=== PATIENT | female | born 1955 | race Caucasian/White ===

== ENCOUNTER 2016-08-02 08:50 | Emergency (ER) | payer OTHER ==
[2016-08-02 09:44] VITALS: BP 146/78
--- NOTE | 2016-08-02 09:55 | PROVIDER DOCUMENTATION ---
HPI-Musculoskeletal Pain/Inj - GENERAL Chief Complaint: Fall Stated Complaint: FALL/EXTREMITY INJURY Time Seen by Provider: 08/02/16 09:42 - HX OF PRESENT ILLNESS-MUSKULOSKELTAL Nature of Presenting Problem: Pt reports she fell 2 nights ago onto her knees and caught herself with her hands. Presents with increased pain in right shoulder from chronic pain but no other pain from fall. States she needs pain meds and something for nausea. Unable to see PCP due to not having met deductible. Has been referred to pain clinic but has not had appt yet. Quality of Pain: reports: aching Severity in ED: moderate Onset/Duration: abrupt, 2 days ago Timing: getting worse Modifying Factors: improves with: nothing Any recent injury?: Yes Locality of Occurance: Home Similar Symptoms Previously?: Yes Recently seen or treated by another doctor?: Yes Review of Systems - Adult - REVIEW OF SYSTEMS - ADULT Constitutional: denies: chills, fever Eyes: reports: no symptoms reported Ears, Nose, Mouth & Throat: reports: no symptoms reported Cardiovascular: reports: no symptoms reported Respiratory: reports: no symptoms reported Gastrointestinal: reports: nausea Musculoskeletal: reports: see HPI Neurological: denies: dizziness/vertigo, headache/migraines, numbness, paresthesia All Other Systems: Reviewed and Negative Past History - Adult - PAST MEDICAL HISTORY-ADULT Review of Records: reports: Old Records Reviewed, Nursing Assessment Review, Medications Reviewed Major Childhood Illnesses: reports: denies history Cardiovascular: reports: hyperlipidemia Respiratory: reports: other (Emphsyma) Gastrointestinal: reports: denies history Obstetrical/Gynecological: reports: denies history Genitourinary: reports: kidney stones Musculoskeletal: reports: chronic pain, fibromyalgia, intervertebral disc disease Neurological: reports: denies history Psychiatric: reports: bipolar Endocrine/Immune: reports: thyroid disorder Other Conditions: reports: denies history - PRIOR SURGERIES/PROCEDURES Surgical/Procedure History: reports: appendectomy, cholecystectomy, hysterectomy - IMMUNIZATION STATUS Childhood Immunizations: See Nurse Assessment Flu Vaccine: See Nurse Assessment - FAMILY HISTORY Family History: reviewed, not pertinent - SOCIAL HISTORY Smoking: greater than 1 pack/day Provider spent 3-5 mins advising pt. on dangers of tobacco.: Discussed manners to quit use, and f/u contacts for add'l counseling. Living Situation: alone Physical Exam-Injury Related - Physical Exam-Injury Related Initial Vital Signs Reviewed: Yes General Appearance: appears well, alert, mild distress Eyes: PERRL/EOMI, pink conjunctivae Head, Ears, Nose, Mouth & Throat: normocephalic/atraumatic, moist mucous membranes Neck: non-tender, full range of motion, supple. negative: C-spine tenderness, decresed ROM, pain on movement, tender midline, vertebral point tenderness Respiratory: chest non-tender, lungs clear, normal breath sounds Cardiovascular: regular rate, rhythm, no edema Abdominal Exam: normal bowel sounds, non tender, soft Extremity: normal gait, tenderness (right shoulder without localization, unwilling to attempt ROM with right shoulder.), other (knees are WNL from fall 2 days ago) Integumentary: normal color, warm/dry Neurologic: grossly normal, no motor/sensory deficits Psych/Mental Status: normal thought content, normal thought process - Glascow Coma Score Best Eye Response ([place]): (4) open spontaneously Best Verbal Response ([place]): (5) oriented Best Motor Response ([place]): (6) obeys commands [place] Total: 15 Progress - PLAN OF CARE/RESULTS Progress/Plan/Lab Results: Has been referred to pain clinic for chronic right shoulder pain, fell a few days ago and now has increased pain. Presents to ER for pain medication and something for nausea. Pt states she is not a surgical candidate for shoulder replacement because she is too young so she will be going to pain clinic soon to treat her chronic right shoulder pain. Again, denies pain in knees, hips, neck, back, left shoulder from recent fall, only has exacerbated pain in right shoulder. Vital Signs Pulse Resp BP Pulse Ox 08/02/16 09:42 100 H 24 146/78 99 sulfamethoxazole [From Bactrim] Allergy (Verified 06/23/15 22:53) RASH trimethoprim [From Bactrim] Allergy (Verified 06/23/15 22:53) RASH Buspirone [Buspar] 10 mg PO TID 10/07/13 Ezetimibe/Simvastatin [Vytorin 10-80 mg Tablet] 1 tab PO QHS 05/08/14 Levothyroxine [Synthroid] 75 microgm PO QAM 05/31/14 Gabapentin [Neurontin] 600 mg PO TID #0 tablet 06/03/14 Omeprazole 40 mg PO DAILY 05/17/15 Hydroxyzine Pamoate [Vistaril] 75 mg PO 4XDAY PRN 08/02/16 Orders Category Date Time Status Ketorolac [Toradol] Med 08/02/16 10:09 Discontinued 10 mg PO NOW ONE Methocarbamol [Robaxin] Med 08/02/16 10:09 Discontinued 500 mg PO NOW ONE Departure - Departure Time of Disposition Order: 10:13 DIAGNOSIS: Shoulder pain, right Qualifiers: Chronicity: acute Qualified Code(s): M25.511 - Pain in right shoulder Disposition: HOME 01 Certified Medical Emergency: Emergent Condition: Good Additional Instructions: Apply heat or ice to area of pain several times per day. Follow up with your doctor as needed for further management of shoulder pain ED Follow Up Instructions: You have been treated by a care provider in the Emergency Department. These instructions are being provided to you so you can have an understanding of how to care for yourself upon discharge. Upon discharge from the Emergency Department, you are responsible for making arrangements for follow-up care by a physician of your choice. Take all prescribed medications as directed. Return to the Emergency Department immediately for any new or worsening symptoms. You may call the Physician Referral phone number at [phone] to obtain a list of Physicians who are taking new patients. Prescriptions: Ibuprofen 800 mg PO BID #20 tablet Methocarbamol 500 mg PO BID #20 tablet Attestation - Physician/ SÁNCHEZ Attestation Patient care was provided by Advanced Practice Provider:: Yes Advanced Practice Provider:: Roopa Hortno Advanced Practice Provider documentation review:: The Mid-level provider documentation, treatment plan and medical decision making was reviewed by the physician who agrees with all treatment and medical decision making by the MLP.
[2016-08-02] MEDS ORDERED: TORADOL PO ONE (10:09)
[2016-08-02] MEDS ORDERED: ROBAXIN PO ONE (10:09)
[2016-08-02] MEDS ORDERED: PHENERGAN PO ONE (10:15)
== END 2016-08-02 10:41 | disposition home or self-care (01) ==
LOC: P.ED 08:50
DX: M25.511 Pain in right shoulder (principal); R11.0 Nausea; E78.5 Hyperlipidemia, unspecified; M79.7 Fibromyalgia; G89.29 Other chronic pain; E07.9 Disorder of thyroid, unspecified; F31.9 Bipolar disorder, unspecified; F17.210 Nicotine dependence, cigarettes, uncomplicated; Z71.6 Tobacco abuse counseling; W19.XXXA Unspecified fall, initial encounter; Z79.899 Other long term (current) drug therapy
CPT/HCPCS: 99282

== ENCOUNTER 2016-12-01 19:40 | Inpatient (IN) ==
[2016-12-01] MEDS ORDERED: ASPIRIN PO ONE (19:53)
[2016-12-01 19:58] LABS: MANUAL DIFF NEEDED? NO
[2016-12-01 20:11] LABS: BASO% 0.3 % (0.0-0.8); EOS# 0.21 X1000 (0.0-0.7); EOS% 3.7 % (0.0-10.0); HEMATOCRIT 38.9 % (37.0-47.0); HEMOGLOBIN 13.3 g/dL (12.0-16.0); LYMPH# 2.17 X1000 (1.2-3.4); LYMPH% 37.9 % (20.5-51.1); MCH 29.7 PG (27-31); MCHC 34.2 g/dL (33-37); MCV 86.8 FL (81-99); MONO# 0.38 X1000 (0.11-0.59); MONO% 6.6 % (1.7-9.3); MPV 10.1 FL (7.4-10.4); NEUT% 51.5 % (42.2-75.2); PLT 255 X1000 (130-400); RBC 4.48 XMIL (4.2-5.4)
[2016-12-01 20:19] LABS: INR 1.04; PROTIME 10.9 Seconds (9.2-11.7); PTT 27.9 Seconds (22.0-36.0)
[2016-12-01 20:22] LABS: AGAP 11; ALBUMIN 2.7 g/dL (3.5-5.0); ALKALINE PHOSPHATASE 140 U/L (32-104); BUN 17 mg/dL (8-22); CALCIUM 8.8 mg/dL (8.8-10.2); CHLORIDE 102 mmol/L (98-107); CK PROFILE 184 U/L (24-173); COSMO 281; GOT 25 U/L (10-30); GPT 19 U/L (10-36); LIPASE 8 U/L (13-60); MAGNESIUM 1.7 mg/dL (1.5-2.7); POTASSIUM 3.3 mmol/L (3.5-5.1); SODIUM 140 mmol/L (136-145); TCO2 27 mmol/L (25-35); TOTAL BILIRUBIN 0.39 mg/dL (0.20-1.00)
[2016-12-01] MEDS ORDERED: KLOR-CON PO ONE (20:30)
[2016-12-01 20:43] LABS: CK INDEX 4.9 (0.0-2.5); CK-MB 8.96 ng/mL (0.0-5.0)
--- NOTE | 2016-12-01 21:43 | Diag Imaging Result Doc PS360 ---
EXAM: CHEST-2 VIEWS HISTORY: CP TECHNIQUE: COMPARISON: 06/25/2015 FINDINGS: The lungs are well expanded. The heart is not enlarged. The vessels are not distended. There are no infiltrates. No pleural effusions. There has been prior surgery to the lower neck. No free air beneath the diaphragm. IMPRESSION: No acute abnormality. Electronically signed by Priyank Mcpherson 12/01/2016 9:41 PM
--- NOTE | 2016-12-01 21:47 | Diag Imaging Result Doc PS360 ---
EXAM: ANGIOGRAM/PULMONARY ARTERIES INDICATION: SOB,CP, elevated D-dimer TECHNIQUE: Dose reduction protocol was used. COMPARISON: 05/09/2011 FINDINGS: There is a small filling defect seen in a branch of the right common artery artery leading to the anterior segment of the right upper lobe consistent with a small pulmonary embolus. No other emboli are appreciated. The clot burden is low. There is patchy aortic atherosclerotic calcification. There is no evidence of aortic aneurysm or dissection. The heart is moderately enlarged. There are calcified mediastinal and hilar lymph nodes indicating prior granulomatous disease. There is a calcified granuloma at the medial right lung base. There are several pleural-based nodules bilaterally. All of these are stable since 2010 making them consistent with noncalcified granulomata. The lungs are clear, otherwise. There is no evidence of pulmonary infarct. There are no pleural fluid collections and no pneumothorax. Review of the upper abdomen reveals hepatic steatosis. There are multiple calcified granulomata in the liver and the spleen. IMPRESSION: 1.Solitary small pulmonary embolus in a branch of the right pulmonary artery (see image 55, series 4). Clot burden is low. 2.Other incidental/nonacute findings detailed above. Electronically signed by John Love 12/01/2016 9:45 PM
[2016-12-01] MEDS ORDERED: LOVENOX 1 MG/KG SUBQ ONE (21:56)
--- NOTE | 2016-12-01 22:00 | PROVIDER DOCUMENTATION ---
This chart was entered by Aleyda Rai Scribe, acting as scribe for Norman Mathis PA. HPI-Chest Pain - General Stated Complaint: CHEST PAIN Time Seen by Provider: 12/01/16 19:42 Source: patient, EMS Allergies/Adverse Reactions: Patient Allergies Allergy/AdvReac Type Severity Reaction Status Date / Time No Known Allergies Allergy Verified 12/01/16 20:04 Home Medications: Home Medication List Medication Instructions Recorded Confirmed Last Taken Type Levothyroxine [Synthroid] 88 microgm PO QAM 05/31/14 12/01/16 12/01/16 History Gabapentin [Neurontin] 600 mg PO TID #0 tablet 06/03/14 12/01/16 12/01/16 Rx Omeprazole 40 mg PO DAILY 05/17/15 12/01/16 12/01/16 History Buprenorphine HCl/Naloxone HCl 2.25 each SL DAILY 12/01/16 12/01/16 12/01/16 History [Suboxone 8 mg/2 mg Sl Film] Celecoxib 200 mg PO DAILY 12/01/16 12/01/16 12/01/16 History Dicyclomine [Bentyl] 20 mg PO BID 12/01/16 12/01/16 12/01/16 History Ezetimibe [Zetia] 10 mg PO DAILY 12/01/16 12/01/16 12/01/16 History Furosemide [Lasix] 20 mg PO DAILY 12/01/16 12/01/16 12/01/16 History Hydroxyzine HCl 10 mg PO 4XDAY 12/01/16 12/01/16 12/01/16 History Potassium Chloride 10 meq PO DAILY 12/01/16 12/01/16 12/01/16 History Pravastatin Sodium 40 mg PO DAILY 12/01/16 12/01/16 12/01/16 History Vilazodone HCl [Viibryd] 20 mg PO TID 12/01/16 12/01/16 12/01/16 History - History of Present Illness-CP Nature of Presenting Problem: 61 Y/O F presents to ED with Chest Pain. Pt states that she had a dull chest pain with radiation to her shoulder that began this afternoon while she was at home. Pt states pain with inspiration and that she has a hx of fibromyalgia. Location: reports: central Chest Pain Radiation: reports: shoulders Quality of Pain: reports: dull Severity in ED: moderate Onset/Duration: this afternoon Timing: still present, improving, changing over time Context/Activities at Onset: reports: none Associated Symptoms: denies: nausea, shortness of breath Nitro Today/Relief: no nitro taken today Aspirin Treatment Today: no aspirin today Recently Seen Here or By Another Healthcare Provider: No Review of Systems - Adult - REVIEW OF SYSTEMS - ADULT Constitutional: denies: chills, fever Eyes: reports: no symptoms reported Ears, Nose, Mouth & Throat: reports: no symptoms reported Cardiovascular: reports: chest pain. denies: orthopnea, palpitations Respiratory: denies: cough, shortness of breath Gastrointestinal: denies: abdominal pain, diarrhea, nausea, poor appetite, vomiting Genitourinary: reports: no symptoms reported Musculoskeletal: reports: no symptoms reported Integumentary: reports: no symptoms reported Neurological: reports: no symptoms reported Psychiatric: reports: no symptoms reported Endocrine: reports: no symptoms reported Hematologic/Lymphatic: reports: no symptoms reported Allergic/Immunologic: reports: no symptoms reported All Other Systems: Reviewed and Negative Past History - Adult - PAST MEDICAL HISTORY-ADULT Review of Records: reports: Old Records Reviewed, Nursing Assessment Review, Medications Reviewed, Social history reviewed & non-contributory. Major Childhood Illnesses: reports: denies history Cardiovascular: reports: hyperlipidemia Respiratory: reports: other (Emphsyma) Gastrointestinal: reports: denies history Obstetrical/Gynecological: reports: denies history Genitourinary: reports: kidney stones Musculoskeletal: reports: chronic pain, fibromyalgia, intervertebral disc disease Neurological: reports: denies history Psychiatric: reports: bipolar Endocrine/Immune: reports: thyroid disorder Other Conditions: reports: denies history - PRIOR SURGERIES/PROCEDURES Surgical/Procedure History: reports: appendectomy, cholecystectomy, hysterectomy - IMMUNIZATION STATUS Childhood Immunizations: See Nurse Assessment Flu Vaccine: See Nurse Assessment - FAMILY HISTORY Family History: reviewed, not pertinent Physical Exam-General - CONSTITUTIONAL General Appearance: alert, no apparent distress - EYES Eyes: pink conjunctivae - HEAD, EARS, NOSE, MOUTH & THROAT HENMT: moist mucous membranes, dental decay - NECK Neck: non-tender, full range of motion - RESPIRATORY Respiratory: lungs clear, normal breath sounds, other (epigastric tenderness) - CARDIOVASCULAR Cardiovascular: normal peripheral pulses, regular rate, rhythm - GASTROINTESTINAL (ABDOMEN) Abdominal Exam: non tender, soft - LYMPHATIC Lymphatic: no adenopathy - MUSCULOSKELETAL Back Exam: normal inspection, no CVA tenderness, no vertebral tenderness Extremity: normal range of motion - SKIN Integumentary: normal color, normal turgor Progress - PLAN OF CARE/RESULTS Progress/Plan/Lab Results: Vital Signs - 8 hr 12/01/16 19:42 12/01/16 21:41 Temperature 98.3 F Pulse Rate 95 H 83 Respiratory Rate 18 16 Blood Pressure 124/68 127/78 O2 Sat by Pulse Oximetry 97 98 Laboratory Results - last 24 hr 12/01/16 12/01/16 12/01/16 19:50 19:50 19:50 WBC 5.73 RBC 4.48 Hgb 13.3 Hct 38.9 MCV 86.8 MCH 29.7 MCHC 34.2 RDW Std Deviation 14.8 H Plt Count 255 MPV 10.1 Immature Gran % (Auto) 0.0 Neut % (Auto) 51.5 Lymph % (Auto) 37.9 [place] % (Auto) 6.6 Eos % (Auto) 3.7 Baso % (Auto) 0.3 Immature Gran # (Auto) 0.00 Neut # (Auto) 2.95 Lymph # (Auto) 2.17 [place] # (Auto) 0.38 Eos # (Auto) 0.21 Baso # (Auto) 0.02 PT INR PTT (Actin FS) D-Dimer 0.58 H Sodium 140 Potassium 3.3 L Chloride 102 Carbon Dioxide 27 Anion Gap 11 BUN 17 Creatinine 0.7 Estimated GFR/1.73 m2 > 60 BUN/Creatinine Ratio 24 Glucose 91 Calculated Osmolality 281 Calcium 8.8 Magnesium 1.7 Total Bilirubin 0.39 AST 25 ALT 19 Alkaline Phosphatase 140 H Creatine Kinase 184 H Creatine Kinase Index 4.9 H CK-MB (CK-2) 8.96 H Troponin T Cpx-X-Wytoptckisy Pept Total Protein 5.0 L Albumin 2.7 L Globulin 2.3 Albumin/Globulin Ratio 1.2 Lipase 8 L 12/01/16 12/01/16 12/01/16 19:50 19:50 19:50 WBC RBC Hgb Hct MCV MCH MCHC RDW Std Deviation Plt Count MPV Immature Gran % (Auto) Neut % (Auto) Lymph % (Auto) [place] % (Auto) Eos % (Auto) Baso % (Auto) Immature Gran # (Auto) Neut # (Auto) Lymph # (Auto) [place] # (Auto) Eos # (Auto) Baso # (Auto) PT 10.9 INR 1.04 PTT (Actin FS) 27.9 D-Dimer Sodium Potassium Chloride Carbon Dioxide Anion Gap BUN Creatinine Estimated GFR/1.73 m2 BUN/Creatinine Ratio Glucose Calculated Osmolality Calcium Magnesium Total Bilirubin AST ALT Alkaline Phosphatase Creatine Kinase Creatine Kinase Index CK-MB (CK-2) Troponin T < 0.010 Fti-[id number]-[id number] Pept 152 Total Protein Albumin Globulin Albumin/Globulin Ratio Lipase Orders Category Date Time Status Cardiac Monitoring DIRECTED Care 12/01/16 19:42 Active Saline Loc NOW Care 12/01/16 19:42 Active ANGIOGRAM/PULMONARY ARTERIES [CT] Stat Exams 12/01/16 20:52 Completed CHEST-2 VIEWS [RAD] Stat Exams 12/01/16 19:42 Completed CBC WITH ELECTRONIC DIFF [HEME] Stat Lab 12/01/16 19:50 Completed CK PROFILE [SP CHEM] Stat Lab 12/01/16 19:50 Completed COMPREHENSIVE METABOLIC PANEL [CHEM] Stat Lab 12/01/16 19:50 Completed D-DIMER [CHEM] Stat Lab 12/01/16 19:50 Completed LIPASE [CHEM] Stat Lab 12/01/16 19:50 Completed MAGNESIUM [CHEM] Stat Lab 12/01/16 19:50 Completed PRO B-NATRIURETIC PEPTIDE Stat Lab 12/01/16 19:50 Completed PROTIME WITH INR [COAG] Stat Lab 12/01/16 19:50 Completed PTT [COAG] Stat Lab 12/01/16 19:50 Completed TROPONIN T Stat Lab 12/01/16 19:50 Completed Aspirin Med 12/01/16 19:53 Discontinued 325 mg PO NOW ONE Enoxaparin 1 mg/kg [Lovenox 1 mg/kg] Med 12/01/16 21:56 Discontinued 1 each SUBQ NOW ONE Potassium Chloride E.r. [Klor-Con] Med 12/01/16 20:30 Discontinued 20 meq PO NOW ONE EKG [EKG] Stat Ther 12/01/16 19:38 Ordered Result Diagrams: 12/01/16 19:50 12/01/16 19:50 - EKG 1 Time of EKG reading by physician:: 19:45 EKG Read and Signed by:: Pam Crowley Jr EKG Interpretation (*Must complete 3 of following elements*): Normal Rate: 94 Rhythm: NSR Comments: Normal ECG - XRAY 1 XRAY Study: Chest XRAY Interpretation: nad - CT/MRI 1 CT Study: Angiogram CT Results: Small PE in R pulmonary artery - CONSULTS/PCP/HOSPITALIST Notification #1 *Consult/PCP/Hospitalist*: Dr. Calle Time Discussed: 22:00 Consult Disposition: Admit Departure - Departure Date of Disposition Decision: 12/01/16 Time of Disposition Decision: 22:00 DIAGNOSIS: Pulmonary embolism Qualifiers: Pulmonary embolism type: other Chronicity: acute Acute cor pulmonale presence: without acute cor pulmonale Qualified Code(s): I26.99 - Other pulmonary embolism without acute cor pulmonale Disposition: ADMITTED INPATIENT 09 Certified Medical Emergency: Emergent Condition: Good Referrals and Follow-Ups: Andrea López MD [Primary Care Provider] - - Critical Care Note This patient required my direct & personal management of CC.: No Attestation - Physician/ SÁNCHEZ Attestation Patient care was provided by Advanced Practice Provider:: Yes Advanced Practice Provider:: Norman Mathis Advanced Practice Provider documentation review:: The Mid-level provider documentation, treatment plan and medical decision making was reviewed by the physician who agrees with all treatment and medical decision making by the MLP. The physician spent face to face time with patient:: Yes Advanced Practice Provider documentation review:: The physician spent face to face time with this patient and agrees with all P documentation, treatment, and medical decision making by the MLP. See provider notes for further information. This chart was documented by the indicated scribe, (Aleyda Rai Scribe) and accurately reflects the services I performed and decisions made by , Norman Mathis PA, as attested by the provider's signature.
[2016-12-01] MEDS ORDERED: NICODERM PATCH TD ONE (22:14)
[2016-12-01] MEDS ORDERED: LOVENOX SUBQ ONE (22:45)
[2016-12-02] MEDS ORDERED: ZOFRAN IV PRN (00:22)
--- NOTE | 2016-12-02 03:48 | HISTORY AND PHYSICAL ---
PRIMARY CARE PROVIDER: Dr. Andrea López. CHIEF COMPLAINT: Chest pain. HISTORY OF PRESENT ILLNESS: This is a 61-year-old female who presents to the emergency room. She has past medical history of hyperlipidemia, COPD, continues to smoke , chronic pain related to fibromyalgia and arthritis. She now takes Suboxone. She has bipolar disorder, hypothyroidism, and GERD. She has also had a TIA in the past 5 years as well as a pulmonary embolism on 05/24/2015. I believe she was anticoagulated at that time with Xarelto. She comes in today related to acute onset chest pain that was sharp, intermittent around 1: 30 this afternoon. She had most of the pain in the left breast around the clavicle. The pain initially was 10/10 and did cause shortness of breath. On assessment, the patient now states that the pain is down to 5/10 and has decreased shortness of breath. A CTA was obtained in the emergency room which showed a solitary small pulmonary embolus in a branch of the right pulmonary artery. The patient did, however, did make mention of bilateral calf pain during the interview. Laboratory data was obtained which was grossly normal other than an elevated D-dimer at 0.58. The potassium was mildly low and her CKs were elevated. Her troponin, however, remained less than 0.010. She will be admitted to the medical floor for further evaluation and treatment. PAST MEDICAL HISTORY: 1. Hyperlipidemia. 2. COPD, however, continues to smoke. 3. Chronic pain related to fibromyalgia and arthritis. The patient is on Suboxone. 4. Bipolar disorder. 5. Hypothyroidism. 6. Pulmonary embolism. 7. GERD. 8. TIA. 9. Subjective chronic pancreatitis. PREVIOUS SURGICAL HISTORY: 1. Appendectomy. 2. Cholecystectomy. 3. Hysterectomy. 4. Gastric bypass in 2005. 5. Cervical spine surgery. FAMILY HISTORY: Father had bladder cancer. Mother had hypertension and breast cancer and a CVA. A sister also has had a CVA. SOCIAL HISTORY: The patient is a 1 pack per day smoker with a 40 pack year history. Smoking cessation was gone over with the patient. She denies wanting to quit at this time but she states that she would like NicoDerm patches in the hospital. She has been disabled since 2001 secondary to her mental health issues. She denies alcohol or illicit drug use or abuse at this time. ALLERGIES: Bactrim causing confusion and tremors. HOME MEDICATIONS: 1. Synthroid 88 mcg p.o. daily. 2. Neurontin 600 mg p.o. t.i.d. 3. Omeprazole 40 mg p.o. daily. 4. Viibryd 20 mg p.o. t.i.d. 5. Bentyl 20 mg p.o. b.i.d. 6. Potassium chloride 10 mEq p.o. daily. 7. Zetia 10 mg p.o. daily. 8. Hydroxyzine 10 mg p.o. 4 times a day. 9. Celecoxib 200 mg p.o. daily. 10. Lasix 20 mg p.o. daily. 11. Suboxone 8 mg films. States she takes 2-1/4 sublingually totally which I believe is 18 mg per day. 12. Pravastatin 40 mg p.o. daily. REVIEW OF SYSTEMS: Fourteen point review of systems conducted with the patient. Pertinent positives listed above in the HPI. Only other addition is lower extremity edema x1 month. All other systems were reviewed and found to be negative. PHYSICAL EXAMINATION: VITAL SIGNS: Temperature 98.3 degrees, pulse 83, respirations 16, blood pressure 127/78, oxygen saturation 98% on room air. GENERAL: A pleasant 61-year-old female lying in the ER bed, looks older than stated age, is in no acute distress, answers all questions appropriately. HEENT: Head is atraumatic, normocephalic. Pupils equal, round, reactive to light. Extraocular eye movement intact. Sclerae is anicteric. Conjunctivae is pink. Oral mucosa is moist. Poor dentition noted. NECK: Supple. No JVD. Trachea is midline. No carotid bruit on auscultation. CARDIOVASCULAR: S1-S2 appreciated. Regular rhythm. A 3/6 systolic ejection murmur noted. No gallops. No rubs. LUNGS: Clear to auscultation bilaterally. No rhonchi, wheezes or rales. Symmetrical rise and fall with respirations. No accessory muscle use. ABDOMEN: Soft, nondistended, nontender. Bowel sounds present in all 4 quadrants, normoactive. No pulsatile mass. No organomegaly. EXTREMITIES: No clubbing or cyanosis. 2+ lower extremity edema below the patella to the ankle. No pedal edema. 2+ pedal pulses bilaterally. Patient did have bilateral calf tenderness on examination. SKIN: Warm dry and intact aside from left face scratches just above the jawline which appears to be self inflicted from scratching her face. DIAGNOSTIC DATA: CT angio- did show a small pulmonary embolism. The EKG showed a normal sinus rhythm with a rate of 94. Chest x-ray was NAD. LABORATORY DATA: CBC within normal limits. Coags within normal limits. D- dimer 0.58. Sodium 140, potassium 3.3, chloride 102, carbon dioxide 27, BUN 17, creatinine 0.7, glucose 91. CK 184, CK index 4.9, CK-MB 8.96. Troponin less than 0.010. Lipase 8. ASSESSMENT AND PLAN: 1. Right pulmonary artery pulmonary embolism. We will start on Lovenox 1 mg/kg b.i.d. daily. She received her 1st dose in the emergency room. 2. Probable bilateral lower extremity deep venous thromboses. Since treatment has already been started, we will defer ultrasound at this time. The patient will be likely bridged over to p.o. medication before discharge. 3. Hyperlipidemia. Continue statin. 4. Hypokalemia. The patient was given potassium in the emergency room. We will continue normal 10 mEq at home potassium daily. 5. Chronic pain. We will continue Suboxone. 6. Tobacco use. NicoDerm patches have been started. Smoking cessation was gone over with the patient. She does want to quit at this time. 7. Hypothyroidism. Continue Synthroid. We will check a TSH. Further recommendations per patient clinical course. Dictated by MELISA Tomlin for Andre Calle MD cc: MELISA Tomlin MD Edwin K. Matthews, MD pt examined, will evaluate for DVT to evaluate clot burden, otherwise agree with above APENOT MTDD
[2016-12-02] MEDS: KLONOPIN PO PRN ×3 (05:17→20:26)
[2016-12-02 05:22] LABS: MANUAL DIFF NEEDED? NO
[2016-12-02 05:35] LABS: BASO% 0.2 % (0.0-0.8); EOS# 0.14 X1000 (0.0-0.7); EOS% 2.7 % (0.0-10.0); HEMATOCRIT 38.1 % (37.0-47.0); HEMOGLOBIN 12.8 g/dL (12.0-16.0); LYMPH# 2.06 X1000 (1.2-3.4); LYMPH% 39.3 % (20.5-51.1); MCH 29.2 PG (27-31); MCHC 33.6 g/dL (33-37); MONO# 0.28 X1000 (0.11-0.59); MONO% 5.3 % (1.7-9.3); MPV 10.4 FL (7.4-10.4); NEUT% 52.5 % (42.2-75.2); PLT 231 X1000 (130-400); RBC 4.38 XMIL (4.2-5.4)
[2016-12-02 06:02] LABS: AGAP 9; BUN 15 mg/dL (8-22); CALCIUM 8.4 mg/dL (8.8-10.2); CHLORIDE 105 mmol/L (98-107); COSMO 283; POTASSIUM 3.9 mmol/L (3.5-5.1); SODIUM 142 mmol/L (136-145); TCO2 28 mmol/L (25-35)
[2016-12-02] MEDS: PRAVACHOL PO SCH (08:37)
[2016-12-02] MEDS: KLOR-CON PO SCH (08:37)
[2016-12-02] MEDS: ZETIA PO SCH (08:37)
[2016-12-02] MEDS: SYNTHROID PO SCH (08:37)
[2016-12-02] MEDS: PRILOSEC PO SCH (08:37)
[2016-12-02] MEDS: LASIX PO SCH (08:37)
[2016-12-02] MEDS: BENTYL PO SCH ×2 (08:37→20:28)
[2016-12-02] MEDS: NICODERM PATCH TD SCH (08:38)
[2016-12-02] MEDS: TYLENOL PO PRN (08:38)
[2016-12-02] MEDS: NEURONTIN PO SCH ×3 (08:38→17:34)
[2016-12-02] MEDS ORDERED: VIIBRYD PO SCH (09:00)
[2016-12-02] MEDS: SUBOXONE 8 MG/2 MG SL SCH (11:00)
[2016-12-02] MEDS ORDERED: LOVENOX SUBQ SCH (11:00)
--- NOTE | 2016-12-02 11:58 | PROGRESS NOTE ---
DATE: 12/02/2016 SUBJECTIVE: Today, Ms. Manrique refers to be doing a lot better. She said her pain has substantially improved since she has been started on her Suboxone. OBJECTIVE: Vital signs: Blood pressure is 84/47, pulse 65, respirations 18, temperature 97.9 degrees. The patient is saturating 97% on room air. General: Ms. Manrique is a 61-year-old female. She is in bed. Does not seem to be in any remarkable distress. HEENT: Mucosa pink and moist. Anicteric. Acyanotic. Neck: Supple. Patient has very poor dentition. Chest: Air entry is bilaterally reduced. I did not appreciate any crepitations or rhonchi. Cardiovascular: Regular rate and rhythm. There is a positive MR murmur of about 3 over 6 in intensity. Abdomen: Soft. Extremities: No pedal edema. Central Nervous System: Patient is alert and oriented x4. There is no focal neurological deficit. LABORATORY AND IMAGING DATA: WBC is 5.24, hemoglobin is 12.8, platelet count is 231,000. Sodium is 142, potassium is 3.9, chloride is 105, bicarbonate is 28. TSH is 5.68. A CTA which was done early this morning shows a solitary small pulmonary embolus in a branch of the right pulmonary artery. Clot burden is low. ASSESSMENT: 1. Right pulmonary embolism. The patient is currently on Lovenox, therapeutic. We are waiting to start her on Eliquis. 2. Tobacco abuse. 3. Hypothyroidism. Patient is on levothyroxine. 4. Dyslipidemia. 5. Poor dentition. cc: Jesse Sibley MD
[2016-12-02] MEDS: VIIBRYD PO SCH (13:29)
[2016-12-03] MEDS: TYLENOL PO PRN (05:05)
[2016-12-03] MEDS: KLONOPIN PO PRN (05:06)
[2016-12-03 07:41] VITALS: BP 94/53
[2016-12-03] MEDS: ZETIA PO SCH (08:53)
[2016-12-03] MEDS: PRILOSEC PO SCH (08:53)
[2016-12-03] MEDS: NEURONTIN PO SCH (08:53)
[2016-12-03] MEDS: BENTYL PO SCH (08:53)
[2016-12-03] MEDS: LASIX PO SCH (08:53)
[2016-12-03] MEDS: KLOR-CON PO SCH (08:53)
[2016-12-03] MEDS: VIIBRYD PO SCH (08:53)
[2016-12-03] MEDS: PRAVACHOL PO SCH (08:53)
[2016-12-03] MEDS: NICODERM PATCH TD SCH (08:54)
[2016-12-03] MEDS: SYNTHROID PO SCH (08:54)
[2016-12-03] MEDS ORDERED: ELIQUIS PO SCH ×2 (09:00→21:00)
[2016-12-03] MEDS: SUBOXONE 8 MG/2 MG SL SCH (09:40)
--- NOTE | 2016-12-03 13:23 | DISCHARGE SUMMARY ---
ADMISSION DATE: 12/01/2016 DISCHARGE DATE: 12/03/2016 DISPOSITION: Home. FOLLOWUP: Follow up will be with PCP, Dr. Andrea López. INVASIVE PROCEDURE DONE DURING THIS ADMISSION: None. IMAGING STUDIES OF SIGNIFICANCE: A CTA of the lungs was done on presentation which showed a solitary small pulmonary embolism in the branch of the right pulmonary artery. Clot burden is low. ADMISSION DIAGNOSES: 1. Right pulmonary artery embolism. 2. Probably bilateral deep vein thrombosis. 3. Dyslipidemia. 4. Hyperkalemia. DIAGNOSES AT THE TIME OF DISCHARGE: 1. Right pulmonary artery embolism. 2. Tobacco abuse. 3. Hypothyroidism. 4. Dyslipidemia. 5. Poor dentition. 6. Previous history of prescription drug abuse. Patient is currently on Suboxone. 7. Hypothyroidism. DISCHARGE MEDICATIONS: 1. Levothyroxine 88 mcg daily. 2. Gabapentin 600, 3 times per day. 3. Omeprazole 40 mg daily. 4. Vilazodone 20 mg, 3 times per day. 5. Bentyl 20 mg b.i.d. p.r.n. 6. Zetia 10 mg daily. 7. Hydroxyzine 10 mg daily. 8. Furosemide 20 mg b.i.d. 9. Pravastatin 40 mg daily. 10. Eliquis 10 mg b.i.d. for 7 days and then Eliquis 5 mg b.i.d. to start on 12/10/2016. PRESENTING COMPLAINT: Chest pain. HISTORY OF PRESENTING COMPLAINT: Ms. Manrique is a 61-year-old, female, history of dyslipidemia, COPD. Patient continues to smoke. Came to the emergency department because of acute onset of chest pain. The patient refers that she was is on Xarelto before for PE in 2014 and had a sense that she probably had another one. Presented with a CT scan of the lungs that did confirm that she had a solitary small pulmonary embolism in the right pulmonary artery. Patient was admitted for further medical care. HOSPITAL COURSE: The patient did pretty well, was started on b.i.d. Lovenox therapeutic dose. The pain got improved. Shortness of breath resolved. Today she refers to be doing a lot better. Because patient improved so remarkably well, there was no need to involve any subspecialty care. The Lovenox was later changed to Eliquis 10 mg b.i.d. The patient is going to be discharged on that dose for 7 days, and then we will reduce it to 5 mg b.i.d. for 6 months. Patient will follow up with her primary care doctor. We had a more than 15 minute discussion about smoking cessation. The patient will continue with her pain management. At the time of discharge, there is not any pending labs or imaging studies. TIME SPENT FOR DISCHARGE: 37 minutes. cc: Jesse Sibley MD
== END 2016-12-03 12:01 | disposition home or self-care (01) ==
LOC: SUPCPDRO → ED 19:40 → EDIPHOLD 23:50 → SUATTDRO 23:50 → 3N 12-02 06:17
PROVIDERS: ATTEND Internal Medicine

== ENCOUNTER 2018-10-04 11:33 | Inpatient (IN) ==
--- NOTE | 2018-10-04 12:29 | PROVIDER DOCUMENTATION ---
HPI-General Adult - General Chief Complaint: General Adult Stated Complaint: n/v/d x 3 days and rash on arm Time Seen by Provider: 10/04/18 12:00 Source: patient, family Allergies/Adverse Reactions: Patient Allergies Allergy/AdvReac Type Severity Reaction Status Date / Time No Known Allergies Allergy Verified 02/19/18 21:52 Home Medications: Home Medication List Medication Instructions Recorded Confirmed Last Taken Type Gabapentin [Neurontin] 600 mg PO TID #0 tablet 06/03/14 05/02/18 12/01/16 Rx Dicyclomine [Bentyl] 20 mg PO TID PRN 12/01/16 05/02/18 12/01/16 History Ezetimibe [Zetia] 10 mg PO DAILY 12/01/16 05/02/18 12/01/16 History Hydroxyzine HCl 10 mg PO 4XDAY PRN 12/01/16 05/02/18 12/01/16 History Pravastatin Sodium 40 mg PO HS 12/01/16 05/02/18 12/01/16 History Levothyroxine [Synthroid] 175 microgm PO DAILY 04/07/18 05/02/18 Unknown History Tizanidine HCl 4 mg PO BID 04/07/18 05/02/18 Unknown History Buspirone [Buspar] 10 mg PO TID 04/09/18 05/02/18 Unknown History Apixaban [Eliquis] 5 mg PO BID #60 tab 05/14/18 Unknown Rx Bisacodyl [Dulcolax] 10 mg [place] DAILY PRN PRN #30 supp 05/14/18 Unknown Rx Ergocalciferol (Vitamin D2) 50,000 unit PO Q7D #8 cap 05/14/18 Unknown Rx [Vitamin D2] Iron Carbonyl/Ascorbic Acid 1 ea PO BID #60 tab 05/14/18 Unknown Rx [Icar-C] Lactobacillus Rhamnosus GG 1 ea PO BID #60 cap 05/14/18 Unknown Rx [Culturelle] Midodrine [Proamatine] 10 mg PO TID #180 tab 05/14/18 Unknown Rx Multivitamin/Iron/Folic Acid 1 ea PO DAILY #30 tab 05/14/18 Unknown Rx [Centrum Adults Tablet] Oxycodone HCl/Acetaminophen 1 ea PO Q6H #30 tab 05/14/18 Unknown Rx [Percocet 10-325 mg Tablet] Spironolactone [Aldactone] 12.5 mg PO DAILY #30 tab 05/14/18 Unknown Rx Vilazodone [Viibryd] 40 mg PO WBREAKFAST #30 tab 05/14/18 Unknown Rx - History of Present Illness -Gen Adult Nature of Presenting Problems: i s 63 yof that presents by EMS. Pt. has family member at bedside and they report multiple complaints. Family member has a notebook with approximately 16 or more complaints written down. She reports they went to Dr. Mcgovern office today and were told to come to the ED. Pt. is confused and has bruising noted to her arms. Pt. also reports mild edema to lower extremities and has a Hx of CHF. Family member reports the patient gets like this with UTI's. Location of Pain/Injury: reports: generalized. denies: none, head, face, mouth, neck, chest, upper extremity, hand(s), abdomen, back, pelvis, genitalia, lower extremity, feet, upper body, lower body, other Pain Radiation: reports: no radiation. denies: arm(s), back, buttocks, chest, epigastric, feet, groin, jaw, flank (L), legs (lower), LLQ, LUQ, neck, periumbilical, flank (R), RLQ, RUQ, shoulder(s), scapula, scrotal, sternal notch, suprapubic, legs (upper), urethral, vaginal, other Quality of Pain: reports: aching. denies: burning, cramping, indigestion, stabbing, throbbing, tightness Severity: reports: moderate. denies: mild, severe Onset/Duration: reports: gradual, 3 days ago Timing: reports: still present. denies: gone now, constant, getting worse Context/Activities at Onset: reports: none. denies: light activity, moderate activity, vigorous activity, recent emotional stress, recent physical stress, recent trauma history, possible bad food, cold exposure, eating, out of country travel, rest, sleep, sexual activity, other Modifying Factors: improves with: nothing Associated Symptoms: reports: diarrhea, fatigue, headaches, loss of appetite, malaise, muscle aches, nausea, rash, vomiting, weakness. denies: back/neck pain, cough, diaphoresis, joint pain, sinus congestion/drainage Similar Symptoms Previously?: Yes Recently seen or treated by another doctor?: Yes Review of Systems - Adult - REVIEW OF SYSTEMS - ADULT Constitutional: reports: no symptoms reported Eyes: reports: no symptoms reported Ears, Nose, Mouth & Throat: reports: no symptoms reported Cardiovascular: reports: no symptoms reported Respiratory: reports: see HPI, cough. denies: dyspnea on exertion, pleurisy, wheezing Gastrointestinal: reports: see HPI, diarrhea, nausea, vomiting. denies: hematemesis, constipation, frequent heartburn Genitourinary: reports: no symptoms reported Musculoskeletal: reports: see HPI, muscle aches. denies: back pain, joint pain, neck pain Integumentary: reports: see HPI, rash. denies: hair loss, mole changes, skin thickening Neurological: reports: see HPI, dizziness/vertigo, other (confusion). denies: ataxia, numbness, seizure, tremors Psychiatric: reports: no symptoms reported Past History - Adult - PAST MEDICAL HISTORY-ADULT Review of Records: reports: Old Records Reviewed, Nursing Assessment Review, Medications Reviewed, Social history reviewed & non-contributory. Major Childhood Illnesses: reports: denies history Cardiovascular: reports: hyperlipidemia Respiratory: reports: pneumonia, other (Emphsyma) Gastrointestinal: reports: colitis Obstetrical/Gynecological: reports: denies history Genitourinary: reports: kidney stones Musculoskeletal: reports: chronic pain, fibromyalgia, intervertebral disc disease Neurological: reports: denies history Psychiatric: reports: bipolar Endocrine/Immune: reports: thyroid disorder Other Conditions: reports: denies history - PRIOR SURGERIES/PROCEDURES Surgical/Procedure History: reports: appendectomy, cholecystectomy, hysterectomy - IMMUNIZATION STATUS Childhood Immunizations: See Nurse Assessment Flu Vaccine: See Nurse Assessment - FAMILY HISTORY Family History: reviewed, not pertinent - SOCIAL HISTORY Smoking: non-smoker Physical Exam-General - PHYSICAL EXAM-ADULT Initial Vital Signs Reviewed: Yes - CONSTITUTIONAL General Appearance: moderate distress, lethargic, slow to respond. negative: anxious, obtunded - EYES Eyes: PERRL/EOMI, pink conjunctivae. negative: conjuctival exudate, scleral icterus, subconjunctival hemorrhage - HEAD, EARS, NOSE, MOUTH & THROAT HENMT: normocephalic/atraumatic, moist mucous membranes. negative: angioedema, pharyngeal erythema, frontal tenderness, maxillary tenderness - NECK Neck: non-tender, full range of motion, supple, normal inspection. negative: lymphadenopathy, trachial deviation, thyromegaly - RESPIRATORY Respiratory: lungs clear, normal breath sounds. negative: crackles, rales, rhonchi, stridor, wheezing - CARDIOVASCULAR Cardiovascular: regular rate, rhythm, no JVD, tachycardia. negative: no edema, extra beats, friction rub, irregularly irregular - GASTROINTESTINAL (ABDOMEN) Abdominal Exam: normal bowel sounds, non tender, soft. negative: distended, guarding, rigid, rebound, tenderness, hernia, mass - GENITOURINARY Female Genitalia/Pelvic Exam: deferred Rectal Exam: decreased tone Hemoccult Exam: heme positive stool - LYMPHATIC Lymphatic: no adenopathy. negative: axilla node tender, cervical node tenderness - MUSCULOSKELETAL Back Exam: normal inspection, no CVA tenderness, no vertebral tenderness. negative: ecchymosis, swelling, vertebral tenderness Extremity: normal range of motion. negative: deformity, erythema, inflammation, swelling, tenderness Peripheral Pulses: radial (R): 2+, radial (L): 2+ - SKIN Integumentary: pallor, other (There is a large open pressure ulcer on the sacrum.). negative: cyanosis, erythema, jaundice, swelling, tenderness - NEUROLOGIC Neurologic: grossly normal, no motor/sensory deficits. negative: aphasia, facial droop, focal weakness, motor weakness, sensory deficit - PSYCHIATRIC Psych/Mental Status: negative: anxious, paranoid, tearful Progress - PLAN OF CARE/RESULTS Progress/Plan/Lab Results: Vital Signs - 8 hr 10/04/18 11:51 Temperature 99.6 F Pulse Rate 110 H Respiratory Rate 22 Blood Pressure 133/83 O2 Sat by Pulse Oximetry 97 Orders Category Date Time Status Saline Loc NOW Care 10/04/18 12:06 Active CHEST-PORTABLE [RAD] Stat Exams 10/04/18 12:[address] HEAD W/O CONTRAST [CT] Stat Exams 10/04/18 12:07 Ordered BLOOD CULTURE [BLDCUL] Stat Lab 10/04/18 12:08 Uncollected CBC WITH ELECTRONIC DIFF [HEME] Stat Lab 10/04/18 12:06 Uncollected CK PROFILE [SP CHEM] Stat Lab 10/04/18 12:06 Uncollected COMPREHENSIVE METABOLIC PANEL [CHEM] Stat Lab 10/04/18 12:06 Uncollected LACTATE, PLASMA [CHEM] Stat Lab 10/04/18 12:08 Uncollected PRO B-NATRIURETIC PEPTIDE Stat Lab 10/04/18 12:06 Uncollected PROTIME WITH INR [COAG] Stat Lab 10/04/18 12:06 Uncollected PTT [COAG] Stat Lab 10/04/18 12:06 Uncollected TROPONIN T Stat Lab 10/04/18 12:06 Uncollected TSH Stat Lab 10/04/18 12:06 Uncollected URINALYSIS W/POSS RFLX CULT [URINALYSIS] Stat Lab 10/04/18 12:06 Uncollected EKG [EKG] Stat Ther 10/04/18 12:06 Ordered Result Diagrams: 10/04/18 12:58 10/04/18 12:58 - XRAY 1 XRAY Study: Chest ([facility] [address] [facility], [address], [place] [address] Department of Imaging Patient: JOSE MANRIQUE Date: 10/04/18#: [id number] : 8ADM Status: PRE ERAcct#: [id number] Age/Sex: 63/FRoom/Bed: Loc: ED Ordering Physician: Jimbo Manrique Family Physician: None,PCP Reason for Procedure: weakness Signed EXAM: CHEST-PORTABLE 10/04/2018 HISTORY: weakness TECHNIQUE: AP portable at 1239 COMMENT: Compared to the previous study of 05/05/2018 the pulmonary edema and pleural effusions which were present previously have resolved. The heart size and primary vascularity appear to be within normal limits. IMPRESSION: No acute disease. Electronically signed by Yohan Burns 10/04/2018 12:42 PM 10/04/18 1242 Interpreting Physician: Yohan Burns MD Dictated Date/Time: 10/04/18 1241 cc: Jimbo Manrique; None,PCP) - CT/MRI 1 CT Study: Head ([facility] [address], [address], [place] [address] Department of Imaging Patient: JOSE MANRIQUE Date: 10/04/18#: [id number] : 1955DM Status: PRE ERAcct#: [id number] Age/Sex: 63/FRoom/Bed: Loc: ED Ordering Physician: Jimbo Manrique Family Physician: None,PCP Reason for Procedure: new onset confusion Signed EXAM: CT HEAD W/O CONTRAST 10/04/2018 HISTORY: new onset confusion TECHNIQUE: This exam was performed using automated exposure control, adjustment of mA or kV according to patient size, and/or use of iterative reconstruction technique. COMMENT: There is no evidence of mass effect, bleed, abnormal extra-axial fluid collection, or hydrocephalus. There is some encephalomalacia in the posterior left parietal lobe which was also present on the study of 05/11/2018. The visualized paranasal sinuses are clear. The calvarium is intact. IMPRESSION: Chronic ischemic change. No evidence of acute disease. Electronically signed by Yohan Burns 10/04/2018 12:58 PM 10/04/18 1258 Interpreting Physician: Yohan Burns MD Dictated Date/Time: 10/04/18 1257 cc: Jimbo Manrique; None,PCP) CT Results: See note - CONSULTS/PCP/HOSPITALIST Notification #1 *Consult/PCP/Hospitalist*: Christy Flores Time Discussed: 14:22 Reason/Comments: admission Consult Disposition: Will see in ED, Admit Departure - Departure Date of Disposition Decision: 10/04/18 Time of Disposition Decision: 14:16 DIAGNOSIS: Hyperkalemia, Hypocalcemia, Renal insufficiency Sepsis Qualifiers: Sepsis type: sepsis due to unspecified organism Qualified Code(s): A41.9 - Sepsis, unspecified organism GI bleeding Qualifiers: GI bleed type/associated pathology: unspecified gastrointestinal hemorrhage type Qualified Code(s): K92.2 - Gastrointestinal hemorrhage, unspecified CHF (congestive heart failure) Qualifiers: Heart failure type: unspecified Heart failure chronicity: unspecified Qualified Code(s): I50.9 - Heart failure, unspecified Disposition: ADMITTED INPATIENT 09 Certified Medical Emergency: Emergent Condition: Serious Referrals and Follow-Ups: None,PCP [NON-STAFF PROVIDER] - - Critical Care Note This patient required my direct & personal management of CC.: Yes Total Time (mins): 35 Critical Care Statement: This patient required my direct personal management to treat or rule out processes, the absence of which, could potentiallly result in sudden, clinically significant life or limb threatening deterioration. Attestation - Physician/ SÁNCHEZ Attestation Patient care was provided by Advanced Practice Provider:: Yes Advanced Practice Provider:: Jimbo Manrique Advanced Practice Provider documentation review:: The Mid-level provider documentation, treatment plan and medical decision making was reviewed by the physician who agrees with all treatment and medical decision making by the P. The physician spent face to face time with patient:: No Advanced Practice Provider documentation review:: Supervising physician onsite and consulted in the evaluation and care of this patient. The physician did not have a face to face encounter with the patient.
--- NOTE | 2018-10-04 12:44 | Diag Imaging Result Doc PS360 ---
EXAM: CHEST-PORTABLE 10/04/2018 HISTORY: weakness TECHNIQUE: AP portable at 1239 COMMENT: Compared to the previous study of 05/05/2018 the pulmonary edema and pleural effusions which were present previously have resolved. The heart size and primary vascularity appear to be within normal limits. IMPRESSION: No acute disease. Electronically signed by Yohan Burns 10/04/2018 12:42 PM
--- NOTE | 2018-10-04 13:00 | Diag Imaging Result Doc PS360 ---
EXAM: CT HEAD W/O CONTRAST 10/04/2018 HISTORY: new onset confusion TECHNIQUE: This exam was performed using automated exposure control, adjustment of mA or kV according to patient size, and/or use of iterative reconstruction technique. COMMENT: There is no evidence of mass effect, bleed, abnormal extra-axial fluid collection, or hydrocephalus. There is some encephalomalacia in the posterior left parietal lobe which was also present on the study of 05/11/2018. The visualized paranasal sinuses are clear. The calvarium is intact. IMPRESSION: Chronic ischemic change. No evidence of acute disease. Electronically signed by Yohan Burns 10/04/2018 12:58 PM
[2018-10-04 13:15] LABS: BASO# 0.02 X1000 (0.0-0.2); BASO% 0.1 % (0.0-0.8); HEMOGLOBIN 12.3 g/dL (12.0-16.0); IMM GRAN# 0.12 X1000 (0.0-0.04); IMM GRAN% 0.4 % (0.0-0.5); LYMPH# 2.28 X1000 (1.2-3.4); LYMPH% 8.2 % (20.5-51.1); MCH 30.6 PG (27-31); MCHC 33.2 g/dL (33-37); MONO# 0.81 X1000 (0.11-0.59); MONO% 2.9 % (1.7-9.3); MPV 9.5 FL (7.4-10.4); NEUT# 24.74 X1000 (1.4-6.5); NEUT% 88.4 % (42.2-75.2); PLT 493 X1000 (130-400); RBC 4.02 XMIL (4.2-5.4); RDW 17.2 % (11.5-14.5); WBC 27.97 X1000 (4.8-10.8)
[2018-10-04 13:26] LABS: INR 1.31; PROTIME 17.3 Seconds (11.0-16.0)
[2018-10-04 13:38] LABS: ALB/GLOB RATIO 1.3; ALBUMIN 2.5 g/dL (3.5-5.0); CALCIUM 8.1 mg/dL (8.8-10.2); CREATININE 1.5 mg/dL (0.5-0.9); POTASSIUM 5.8 mmol/L (3.5-5.1); TOTAL BILIRUBIN 1.15 mg/dL (0.20-1.00); TOTAL PROTEIN 4.4 g/dL (6.3-8.3)
--- NOTE | 2018-10-04 13:44 | EKG Report ---
Test Performed on : 10/04/2018 1:41:33 PM Test Reason : weakness Blood Pressure : / mmHG Vent. Rate : 106 BPM Atrial Rate : 106 BPM P-R Int : 134 ms QRS Dur : 084 ms QT Int : 328 ms P-R-T Axes : 032 045 076 degrees QTc Int : 435 ms Sinus tachycardia. Otherwise normal ECG When compared with ECG of 07-MAY-2018 05:37, T wave inversion no longer evident in Anterior leads Unconfirmed Result
[2018-10-04] MEDS ORDERED: ROCEPHIN 1 GM in NS 50 ML IV ONE (13:49)
[2018-10-04] MEDS ORDERED: NS 1,000 ML IV ONE ×2 (13:49→17:17)
[2018-10-04 14:04] LABS: URINE SOURCE CATH
[2018-10-04 14:10] LABS: BILIRUBIN URINE NEGATIVE (NEGATIVE); BLOOD URINE NEGATIVE (NEGATIVE); COLOR ORANGE; GLUCOSE URINE NEGATIVE (NEGATIVE); KETONE URINE NEGATIVE (NEGATIVE); LEUKOCYTES URINE TRACE (NEGATIVE); NITRITE URINE NEGATIVE (NEGATIVE); PH URINE 5.5; PROTEIN URINE NEGATIVE (NEGATIVE); SP GRAVITY URINE 1.008; TURBIDITY URINE HAZY (CLEAR); UR EPITHELIAL CELLS <10 /HPF (<10); URINE BACTERIA 4+ /HPF; URINE RBC <10 /HPF (<10); URINE WBC <10 /HPF (<10); UROBILINOGEN URINE 4 mg/dL (NORMAL)
--- NOTE | 2018-10-04 14:15 | ED EKG INTERP ---
This chart was entered by Cathleen Wu Scribe, acting as scribe for Saad Phoenix MD. EKG Interpretation - EKG Time of EKG reading by physician:: 13:41 EKG Read and Signed by:: Saad Phoenix EKG Interpretation (*Must complete 3 of following elements*): Normal Rate: 106 Rhythm: sinus tachy [place]: normal QRS: normal [place] Interval: normal ST Wave: normal Attestation - Physician/ SÁNCHEZ Attestation Patient care was provided by Advanced Practice Provider:: Yes Advanced Practice Provider documentation review:: The Mid-level provider documentation, treatment plan and medical decision making was reviewed by the physician who agrees with all treatment and medical decision making by the MLP. The physician spent face to face time with patient:: No Advanced Practice Provider documentation review:: Supervising physician onsite and consulted in the evaluation and care of this patient. The physician did not have a face to face encounter with the patient. This chart was documented by the indicated scribe, (Cathleen Wu Scribe) and accurately reflects the services I performed and decisions made by me, Saad Phoenix MD, as attested by the provider's signature.
[2018-10-04] MEDS ORDERED: SODIUM CHLORIDE 0.9% INJ SCH (14:30)
[2018-10-04] MEDS ORDERED: D50W SYRINGE IV ONE (14:37)
[2018-10-04] MEDS ORDERED: ALBUTEROL 0.5% INH CONC FOR HYPERKALEMIA INH ONE (14:38)
[2018-10-04] MEDS ORDERED: HUMULIN R IV ONE (14:38)
[2018-10-04] MEDS ORDERED: SODIUM CHLORIDE 0.9% INJ ONE (14:43)
[2018-10-04] MEDS ORDERED: ZYVOX 600 MG/D5W 600 MG/300 ML IVPB IV SCH (14:45)
[2018-10-04] MEDS ORDERED: MAXIPIME 1 GM in NS 50 ML IV SCH (14:45)
[2018-10-04 15:15] LABS: UR CREAT RANDOM 51.2 mg/dL (11-20); UR PROT RANDOM 15.9 mg/dL
[2018-10-04] MEDS ORDERED: ALBUTEROL 0.5% INH CONC FOR HYPERKALEMIA ONE (15:30)
[2018-10-04] MEDS: PROTONIX IV SCH (15:31)
--- NOTE | 2018-10-04 15:31 | Diag Imaging Result Doc PS360 ---
CT THORAX/ABD/PELVIS W/O CON - 10/04/2018 INDICATION: dyspnea/gi bleed COMPARISON: 05/05/2018, 04/18/2018 FINDINGS: CHEST: There is no adenopathy. Stable vascular disease of the aortic arch and great vessels. Stable calcified granulomas in the lungs and mediastinum. Stable chronic atelectasis at the superior segment of the right lower lobe posteriorly. There is some multifocal linear atelectasis or scarring in the right posterior costophrenic angle as well. Otherwise no substantial infiltrates. Bones are intact. Abdomen pelvis: There is diffuse fatty change of the liver. There are cholecystectomy clips. There is a stable left adrenal gland nodule measuring about 2 cm. Stable extremely severe atrophy of the pancreas. Stable surgical changes at the proximal stomach. There is significant wall thickening of the majority of the colon worst at the sigmoid colon. No abnormal dilation of the bowel. There is a Martin catheter in the urinary bladder. There is mild rectal stool impaction. No free air or free fluid. There is extremely dense vascular calcification of the abdominal aorta and pelvic branches. There is severe osteoarthritis of the right hip. There are moderate degenerative changes of the spine. No acute or suspicious bony lesion. IMPRESSION: 1. No acute process in the chest. 2. Diffuse colitis. 3. Severe fatty liver. 4. Stable left adrenal gland nodule. 5. Mild rectal stool impaction. This exam was performed using automated exposure control, adjustment of mA or kV according to patient size, and/or use of iterative reconstruction technique Electronically signed by Arnaldo Lane 10/04/2018 3:28 PM
[2018-10-04] MEDS: NS 1,000 ML IV SCH (16:09)
[2018-10-04] MEDS ORDERED: LEVOPHED 8 MG in D5 1/2 NS 250 ML IV SCH (16:15)
[2018-10-04 16:46] LABS: HEMOGLOBIN A1C 4.9 % (4.8-6.0)
[2018-10-04] MEDS ORDERED: MORPHINE IV PRN (16:57)
[2018-10-04] MEDS ORDERED: LEVAQUIN 500 MG/D5W 500 MG/100 ML IVPB IV SCH (17:00)
[2018-10-04] MEDS: FLAGYL 500 MG/NS 500 MG/100 ML IVPB IV SCH ×2 (17:15→22:48)
[2018-10-04] MEDS ORDERED: CALMOSEPTINE OINTMENT TOP PRN (18:23)
[2018-10-04 19:00] LABS: ALBUMIN 2.1 g/dL (3.5-5.0); CALCIUM 7.3 mg/dL (8.8-10.2); CREATININE 1.4 mg/dL (0.5-0.9); POTASSIUM 4.1 mmol/L (3.5-5.1)
--- NOTE | 2018-10-04 20:21 | HISTORY AND PHYSICAL ---
PRIMARY CARE PHYSICIAN: HISTORY OF PRESENT ILLNESS: Ms. Manrique is a 63-year-old female with a history of hypothyroidism, pulmonary embolism, tobacco dependence, chronic sacral decubitus ulceration, and chronic back pain, who was brought to the ER by family after the patient was noted to be confused and complaining of nausea, vomiting, and rectal bleeding. According to the patient's eldest daughter, starting on Monday, the patient stated that she was not feeling well. She was experiencing nausea, vomiting, and dizziness and overall general malaise. The patient was unable to keep solids or liquids down, so they took the patient to her primary care physician, Dr. Hammer, for an evaluation. During that office visit, the patient was given a prescription for meclizine. The patient's condition continued to worsen as the week progressed. Last night, the patient's family noticed that the patient had a new rash on her arms and legs and that there was a foul odor coming from the chronic sacral decubitus ulceration on her sacrum. The patient upon arrival to the ER was noted to be lethargic and unable to answer questions. She was also noted to be hypotensive and tachycardic. A CT of the chest, abdomen, and pelvis was done that revealed diffuse colitis. The patient's daughter reports the patient has been having multiple stools, and when she tried to clean the patient up at 7 a.m. this morning, she noticed that the patient was passing bright red blood per rectum. The patient was also complaining of abdominal cramping, nausea, and vomiting at that time. The patient was noted to have a potassium of 5.8 and a creatinine of 1.2, and her liver enzymes were also elevated. While in the ER, the patient received 2 L of fluid, and cultures were obtained, and empiric antibiotic therapy was initiated. The patient will be admitted to the ICU for further treatment and evaluation. PAST MEDICAL HISTORY: 1. Hypothyroidism. 2. Bipolar disorder. 3. Bilateral lower extremity DVT. 4. Pulmonary embolism. 5. COPD. 6. Tobacco dependence. 7. GERD. 8. Hyperlipidemia. 9. Chronic sacral decubitus ulceration. 10. History of TIA. 11. Bilateral adrenal adenoma. 12. Moderate aortic stenosis. 13. Depression. 14. Chronic back pain. 15. History of C. difficile colitis. PAST SURGICAL HISTORY: 1. C-spine surgery. 2. Gastric bypass. 3. Hysterectomy. 4. Cholecystectomy. 5. Appendectomy. FAMILY HISTORY: Positive for CVA and hypertension. SOCIAL HISTORY: The patient lives at home with family. She smokes 2 packs of cigarettes a day. The patient does not drink alcohol or use illicit drugs. ALLERGIES: No known drug allergies. HOME MEDICATIONS: The patient's home medication list is not available. REVIEW OF SYSTEMS: Unable to obtain due to the patient's altered mental status. PHYSICAL EXAMINATION: VITAL SIGNS: Temperature 99.6 degrees, blood pressure 83/38, heart rate 130, respirations 16, O2 saturation 99% on 2 L nasal cannula. GENERAL: This is a chronically ill-appearing female lying on the stretcher, in no acute distress. SKIN: Poor skin turgor. Mild erythematous rash on the arms and legs that blanches. HEENT: Head normocephalic, atraumatic. NECK: Supple. No JVD. No lymphadenopathy. HEART: S1, S2 normal. Tachycardic. Positive for a systolic ejection murmur. LUNGS: Equal air entry bilaterally. No wheezing. No rales. No rhonchi. ABDOMEN: Positive bowel sounds. Soft, nontender, nondistended. EXTREMITIES: No edema. No cyanosis. No calf tenderness. GROIN: There is yeast in the suprapubic region and in the crease of both thighs. SACRUM: There is a circular decubitus ulceration with a foul odor. NEUROLOGIC: The patient is lethargic, but she will awaken when her name is called. She is able to move all 4 extremities. LABORATORIES: White blood cell count 27, hemoglobin 12, hematocrit 37, platelets 493,000. INR 1.31. Sodium 142, potassium 5.8, chloride 108, CO2 of 24, BUN 21, creatinine 1.5, glucose 114, calcium 8.1. Total bilirubin 1.1, AST 39, ALT 41, alkaline phosphatase 139. ProBNP 2942. Albumin 2.5. TSH 2.0. Lactate 6. IMAGING STUDIES: Chest x-ray shows no acute disease. Head CT shows chronic ischemic change. CT of the chest, abdomen, and pelvis reveals diffuse colitis, severe fatty liver disease, mild rectal stool impaction. EKG shows sinus tachycardia at 106 beats per minute. ASSESSMENT AND PLAN: 1. Sepsis. Blood cultures and urine culture have been obtained. The patient has diffuse colitis and possibly an infected sacral decubitus ulceration. The patient has been started on antibiotic therapy as well as IV fluid hydration. The patient may require pressor support. 2. Gastrointestinal bleed. The patient has been made NPO. IV Protonix has been started. GI has been consulted. 3. Diffuse colitis. The patient has been started on Flagyl and Levaquin. 4. Hyperkalemia. The potassium has been treated. We will repeat the potassium level this evening. 5. Acute kidney injury. This is likely secondary to sepsis and volume depletion. We will check urine studies and avoid nephrotoxic agents. 6. Leukocytosis. Likely secondary to the underlying infections. The patient has been started on broad-spectrum antibiotic therapy. 7. Sacral decubitus ulceration. This is present on admission. We will culture the wound and consult with Wound Care. 8. Bilateral deep vein thrombosis and pulmonary embolism. The patient's Eliquis is on hold due to the GI bleed. 9. Tobacco dependence. Aware. 10. Chronic obstructive pulmonary disease. Stable. We will start the patient on Xopenex. 11. Elevated liver function tests. We will check a hepatitis profile. We will monitor the liver function studies closely. 12. Severe protein calorie malnutrition. Will consult the crop adjuster. cc: Valeria Page MD MTDD
--- NOTE | 2018-10-04 20:44 | HISTORY AND PHYSICAL ---
CHIEF COMPLAINT: Nausea, vomiting, and diarrhea x3 days. HISTORY OF PRESENT ILLNESS: This is a 63-year-old female who presented to the emergency room with family members, reporting nausea, vomiting and diarrhea x 3 days. She is oriented to person, family members, and she knows she is at [facility]. She has bruising noted to her arms and legs. Family feels that she has a urinary tract infection as she has gotten confused with urinary tract infections in the past. PAST MEDICAL HISTORY: Hypothyroid, hyperlipidemia, bipolar disorder, fibromyalgia, arthritis, history of DVT and PE, COPD, C. diff colitis, ESBL-positive E. coli UTI in 06/2018, and gastroesophageal reflux disease. PAST SURGICAL HISTORY: Appendectomy, cholecystectomy, hysterectomy, gastric bypass in 2005, and cervical spine surgery. SOCIAL HISTORY: She smokes cigarettes. Denies alcohol or illicit drug use. ALLERGIES: No known drug allergies. HOME MEDICATIONS: A list will be obtained by the nursing staff. Once verified, we will review and restart as appropriate. REVIEW OF SYSTEMS: Discussed with the patient and the family members, with pertinent positives stated in the HPI. They deny any syncope or dizziness; any chest pain, palpitations; any wheezing, shortness of breath; any black or bloody vomitus or stools; or any hematuria, dysuria, frequency, or urgency. PHYSICAL EXAMINATION: GENERAL: This is a 63-year-old female who is lying on the stretcher in the emergency room in no distress. VITAL SIGNS: Blood pressure 108/54 with a heart rate of 110, respirations are 23, temperature is 98.7 degrees oral, with O2 saturations 97% to 99%. EYES: Pupils are equal, round, react to light. EOMs are intact. Sclerae are anicteric. HENT: Head is normocephalic, atraumatic. Mucous membranes are moist. NECK: Supple. Trachea midline. CARDIOVASCULAR: Regular rate and rhythm. She is tachycardic. No murmur. She does have bilateral lower extremity edema, with peripheral pulses palpable x4 extremities. PULMONARY: Breath sounds are clear with no increased work of breathing noted. Chest rises and falls with symmetric respiration. Chest wall is nontender to palpation. GASTROINTESTINAL: Abdomen is soft, nontender, nondistended, with bowel sounds in all 4 quadrants. SKIN: Warm and dry. She does have bruises noted to bilateral arms. LABORATORIES: WBC is 27.9 with hemoglobin 12.3, hematocrit 37, and platelets of 493,000. Sodium 142, potassium 5.8, BUN 21, creatinine 1.5 with a glucose of 237. Total bilirubin is 1.1 with AST 39, ALT 41, and alkaline phosphatase 139. Her plasma lactate is 2.6. Blood cultures and urine culture are pending. Clostridium difficile antigen and toxin are both negative. Stool for occult blood is positive. IMAGING STUDIES: CT of the chest, abdomen, and pelvis reveals diffuse colitis, severe fatty liver, and mild rectal stool impaction. ASSESSMENT AND PLAN: 1. Mild diffuse colitis. Flagyl and Levaquin. Stool for C. diff was negative. 2. Nausea and vomiting. NPO, give IV hydration, Zofran for nausea. 3. Sepsis. It is very likely that this comes from a sacral decubitus. Consult Wound Care, antibiotics as stated above, and further antibiotics will be culture driven. 4. Hyperkalemia. Hold any potassium supplements and trend labs 5. Renal insufficiency. Renal dose medications, hydrate and trend her labs. 6. Gastrointestinal bleed. Consult Gastroenterology. Protonix q.12 hours. 7. Elevated liver functions. Check a liver panel,hepatitis profile, and consult Gastroenterology. 8. Chronic obstructive pulmonary disease. DuoNeb q.4 hours as needed. 9. Hypothyroid. Continue her home medication. 10. Bipolar disorder. Identify her medications and continue. 11. Severe aortic stenosis. Aware. 12. History of deep vein thrombosis. The patient is on Eliquis. Of course, we will hold this as she does have a GI bleed. For DVT prophylaxis, we will use SCDs. 13. Further treatment pending hospital course. Dictated by MELISA Olivo for Valeria Page MD cc: MELISA Olivo MD [facility]
[2018-10-04] MEDS: MYCOSTATIN POWDER TOP SCH (20:45)
[2018-10-04] MEDS ORDERED: HUMULIN R SUBQ SCH (21:00)
[2018-10-05] MEDS: PROTONIX IV SCH ×2 (01:42→14:23)
[2018-10-05] MEDS: NS 1,000 ML IV SCH ×3 (01:42→12:45)
[2018-10-05] MEDS: FLAGYL 500 MG/NS 500 MG/100 ML IVPB IV SCH ×4 (03:42→23:00)
[2018-10-05 05:38] LABS: BASO# 0.01 X1000 (0.0-0.2); BASO% 0.1 % (0.0-0.8); HEMATOCRIT 29.9 % (37.0-47.0); HEMOGLOBIN 9.9 g/dL (12.0-16.0); IMM GRAN# 0.06 X1000 (0.0-0.04); IMM GRAN% 0.4 % (0.0-0.5); LYMPH# 2.27 X1000 (1.2-3.4); LYMPH% 16.1 % (20.5-51.1); MCH 30.7 PG (27-31); MCHC 33.1 g/dL (33-37); MCV 92.6 FL (81-99); MONO# 0.75 X1000 (0.11-0.59); MONO% 5.3 % (1.7-9.3); MPV 9.8 FL (7.4-10.4); NEUT# 11.02 X1000 (1.4-6.5); NEUT% 78.1 % (42.2-75.2); PLT 413 X1000 (130-400); RBC 3.23 XMIL (4.2-5.4); RDW 17.7 % (11.5-14.5); WBC 14.11 X1000 (4.8-10.8)
[2018-10-05 06:04] LABS: ALB/GLOB RATIO 1.1; ALBUMIN 1.9 g/dL (3.5-5.0); CALCIUM 7.3 mg/dL (8.8-10.2); CREATININE 1.1 mg/dL (0.5-0.9); DIRECT BILIRUBIN 0.2 mg/dL (0.00-0.20); PHOSPHORUS 3.5 mg/dL (2.7-4.5); TOTAL BILIRUBIN 0.52 mg/dL (0.20-1.00); TOTAL PROTEIN 3.6 g/dL (6.3-8.3)
[2018-10-05] MEDS: SYNTHROID IV SCH ×2 (06:21→08:23)
--- NOTE | 2018-10-05 07:05 | EKG Report ---
Test Performed on : 10/04/2018 4:33:01 PM Test Reason : TACHYCARDIA Blood Pressure : / mmHG Vent. Rate : 127 BPM Atrial Rate : 127 BPM P-R Int : 132 ms QRS Dur : 066 ms QT Int : 310 ms P-R-T Axes : 022 032 080 degrees QTc Int : 450 ms Sinus tachycardia. with premature atrial complexes. Nonspecific T wave abnormality Abnormal ECG When compared with ECG of 04-OCT-2018 13:41, (Unconfirmed) premature atrial complexes. are now present Unconfirmed Result
--- NOTE | 2018-10-05 07:24 | EKG Report ---
Test Performed on : 10/05/2018 07:08:54 AM Test Reason : tachycardia Blood Pressure : / mmHG Vent. Rate : 112 BPM Atrial Rate : 112 BPM P-R Int : 138 ms QRS Dur : 068 ms QT Int : 336 ms P-R-T Axes : 028 030 073 degrees QTc Int : 458 ms Sinus tachycardia. with premature atrial complexes. Otherwise normal ECG When compared with ECG of 04-OCT-2018 16:33, (Unconfirmed) No significant change was found Confirmed by Aram MALIK, Nahum Garvin ([id number]) on 10/07/2018 4:38:45 PM
[2018-10-05 08:05] LABS: INR 1.16; PROTIME 15.8 Seconds (11.0-16.0)
[2018-10-05] MEDS: MYCOSTATIN POWDER TOP SCH ×2 (08:22→21:35)
[2018-10-05 10:27] LABS: HEPATITIS PROFILE ACUTE SEE COMMENTS
[2018-10-05] MEDS: ZOFRAN IV PRN (11:10)
[2018-10-05] MEDS: ZOSYN 3.375 GM in NS 50 ML IV SCH ×3 (12:02→17:49)
[2018-10-05] MEDS: SANTYL OINT TOP SCH ×2 (12:03→15:34)
[2018-10-05] MEDS ORDERED: PERCOCET-5 PO ONE (14:29)
--- NOTE | 2018-10-05 14:34 | PROGRESS NOTE ---
DATE: 10/05/2018 SUBJECTIVE: The patient is awake and alert this morning. She is agitated, and does not want to be in the hospital. OBJECTIVE: Vital Signs: Temperature 98.6 degrees, blood pressure 121/63, heart rate 116, respirations 16, and O2 saturation 98% on 2 L nasal cannula. General: This is a chronically ill- appearing elderly female lying in bed in no acute distress. HEENT: Head normocephalic and atraumatic. Heart: S1, S2 normal. Tachycardic. Lungs: Clear to auscultation bilaterally. Abdomen: Positive bowel sounds. Soft, nontender, and nondistended. Extremities: 1+ edema. Neurologic: The patient is awake and alert, but she does have periods of confusion and agitation. LABORATORY: White blood cell count 14, hemoglobin 9.9, hematocrit 29, and platelets 413,000. INR 1.1. Sodium 143, potassium 4, chloride 112, CO2 23, BUN 21, creatinine 1.1, glucose 72, AST 26, ALT 31, alkaline phosphatase 112, albumin 1.2, and total protein 3.6. ASSESSMENT AND PLAN: 1. Sepsis. Improved. Continue with antibiotic therapy. The urine culture and wound culture were both growing gram-negative rods. 2. Diffuse colitis. Continue with antibiotic therapy. GI is following. 3. Urinary tract infection. Continue with antibiotic therapy. We will follow up on the urine culture results. 4. Infected sacral decubitus ulceration. Wound Care has been consulted. We will continue with antibiotic therapy and await possible debridement. 5. Rectal bleeding. This appears to have resolved. We will continue on IV Protonix. Gastroenterology is following. 6. Acute kidney injury. Improved. We will decrease the IV fluid rate. 7. Leukocytosis. Improved. Continue with IV antibiotic therapy. 8. Bilateral DVT and pulmonary embolism. Aware. The patient's Eliquis is on hold due to the rectal bleeding that the patient was having yesterday. We will continue to monitor the patient closely. 9. Chronic obstructive pulmonary disease. Stable. 10. Tobacco dependence. Aware. 11. Severe protein calorie malnutrition. We will advance the patient's diet. 12. Disposition. The patient is stable for transfer to the medical floor on telemetry. cc: Valeria Page MD [facility]
[2018-10-05] MEDS ORDERED: NORCO-10 PO PRN ×2 (15:37→22:26)
--- NOTE | 2018-10-05 16:09 | GASTROENTEROLOGY CONSULTATION ---
DATE: 10/05/2018 REASON FOR CONSULTATION: Rectal bleeding, colitis, nausea, vomiting HISTORY OF PRESENT ILLNESS: Ms. Rebekah Manrique is a 63 year old woman with COPD, BPD, GERD, h/o CDI, h/o DVT/PE, RYGB, chronic sacral decubitus ulceration, chronic iron deficiency anemia, and tobacco abuse who presented with several days of nausea, vomiting, and diarrhea with rectal bleeding with BRBPR. History limited as patient was agitated, requesting food, stating "leave me alone... ya'll ask too many questions". Per report, patient had dizziness, malaise, and confusion and was seen by PCP who prescribed meclizine. She subsequently developed rash on arms/legs. Family noted foul odor coming from sacral wound. On presentation patient was noted to be hypotensive and tachycardic. While in the ER, the patient received 2 L of fluid, and cultures were obtained, and empiric antibiotic therapy was initiated. The patient will be admitted to the ICU for further treatment and evaluation. She has had multiple CT A/P over the last several years showing enteritis +/- colitis. She had EGD and partial colonoscopy in 04/2018 were unremarkable. She was diagnosed with CDI at that time. She has had significant improvement overnight with flagyl, zosyn and IVFs and is requesting food. ROS: as per HPI; limited at patient not conversant and agitated PAST MEDICAL HISTORY: COPD, BPD, GERD, h/o CDI, h/o DVT/PE, RYGB, chronic sacral decubitus ulceration, chronic iron deficiency anemia, tobacco abuse, HLD, history of TIA, history of pyelonephritis, h/o renal stones, moderate , depression, chronic back pain, depression, bilateral adrenal adenomas, h/o recurrent colitis, fibromyalgia, chronic constipation PAST SURGICAL HISTORY: C-spine surgery, gastric bypass, hysterectomy, s/p lithotripsy and uteral stent, cholecystectomy, appendectomy FAMILY HISTORY: Positive for CVA and hypertension. SOCIAL HISTORY: The patient lives at home with family. She smokes 2 packs of cigarettes a day. The patient does not drink alcohol or use illicit drugs. ALLERGIES: No known drug allergies. HOME MEDICATIONS: Reviewed meds in chart; not reconciled PHYSICAL EXAMINATION: VITAL SIGNS: On admission: Temperature 99.6 degrees, blood pressure 83/38, heart rate 130, respirations 16, O2 saturation 99% on 2 L nasal cannula. CURRENT VS: T 97.9 HR 110 RR 20 BP 134/75 O2 98% RA GEN: awake, alert, NAD, angry HEENT: anicteric, MMM, EOMI NECK: supple, no jvd PULM: CTAB, no wheezing CV: tachycardic, regular ABD: soft NT/ND, NABS, no rebound or guarding EXT: no cce SACRUM: per report, circular decubitus ulceration with a foul odor RECTAL: deferred NEURO: moving all extremities, unpleasant LABS: WBC 14<--28 Hgb 9.9<--12.3 plts 413K INR 1.16 Cr 1.1<--1.4 lactate 6.0 Cr 3.4 ESR 0 trop neg LFTs WNL today from mild transaminitis yesterday; acute hep panel neg albumin 1.9 GNR from sacral wound UCx GNR BCx2 pending cdiff antigen and A/B neg IMAGING STUDIES: Chest x-ray shows no acute disease. Head CT shows chronic ischemic change. CT THORAX/ABD/PELVIS W/O CON - 10/04/2018 INDICATION: dyspnea/gi bleed COMPARISON: 05/05/2018, 04/18/2018 FINDINGS: CHEST: There is no adenopathy. Stable vascular disease of the aortic arch and great vessels. Stable calcified granulomas in the lungs and mediastinum. Stable chronic atelectasis at the superior segment of the right lower lobe posteriorly. There is some multifocal linear atelectasis or scarring in the right posterior costophrenic angle as well. Otherwise no substantial infiltrates. Bones are intact. Abdomen pelvis: There is diffuse fatty change of the liver. There are cholecystectomy clips. There is a stable left adrenal gland nodule measuring about 2 cm. Stable extremely severe atrophy of the pancreas. Stable surgical changes at the proximal stomach. There is significant wall thickening of the majority of the colon worst at the sigmoid colon. No abnormal dilation of the bowel. There is a Martin catheter in the urinary bladder. There is mild rectal stool impaction. No free air or free fluid. There is extremely dense vascular calcification of the abdominal aorta and pelvic branches. There is severe osteoarthritis of the right hip. There are moderate degenerative changes of the spine. No acute or suspicious bony lesion. IMPRESSION: 1. No acute process in the chest. 2. Diffuse colitis. 3. Severe fatty liver. 4. Stable left adrenal gland nodule. 5. Mild rectal stool impaction. PROCEDURE DATE: 04/24/2018 PROCEDURES: 1. Colonoscopy. 2. Esophagogastroduodenoscopy. PREOPERATIVE DIAGNOSES: 1. Anemia. 2. Sepsis. POSTOPERATIVE DIAGNOSES: 1. Status post gastroplasty. No evidence of anastomotic ulcer. 2. No evidence of colitis, however suboptimal exam due to inadequate prep. DESCRIPTION OF PROCEDURE IN DETAIL: After informed consent and adequate intravenous sedation, the scope introduced through the esophagus, stomach, and patient had gastroplasty. The anastomotic sites looked normal. No evidence of ulcers. No bleeding lesion, no AVM's, no esophageal varices. The scope was withdrawn. At this point, digital rectal exam performed. The scope was introduced all the way in transverse colon. There were no large lesions, however the prep is quite suboptimal, but areas of mucosa of the colon that were examined after thorough lavage showed no evidence of colitis. I did not see any reason from the colon to give her sepsis. The scope is withdrawn after stool is being collected for culture and Clostridium difficile. The patient tolerated procedure well without any immediate complications. ASSESSMENT AND PLAN: Ms. Rebekah Manrique is a 63 year old woman with COPD, BPD, GERD, h/o CDI, h/o DVT/PE, RYGB, chronic sacral decubitus ulceration, chronic iron deficiency anemia, and tobacco abuse who presented with several days of nausea, vomiting, and diarrhea with rectal bleeding with BRBPR found to fluid-responsive hypotension secondary to sepsis +/- hypovolemia. Labs showed profound leukocytosis and elevated lactate. Other findings include thrombocytosis, anemia, hypoalbuminemia, GNR from wound and urine, and minimally elevated LFTs. CT A/P shows diffuse colitis, fecal loading, and hepatic steatosis, and stable left adrenal nodule. Her sepsis could be from several etiologies including infected sacral wound, colitis, and UTI. #Diffuse colitis: no IBD on prior colonoscopy; likely infectious; on flagyl and zosyn - consider d/c flagyl since on zosyn already and cdiff was negative - send stool culture - recommend repeat CTAP in 6-8 weeks to assess for resolution #Rectal bleedin/2 to colitis as above; trend H/H transfuse prn goal hgb 7-8; avoid blood thinners #Acute on chronic iron deficiency anemia: hgb 9.9; rectal bleed; hold iron in setting of infection #Sacral wound: surgery consulted; consider ID consultation; wound care #UTI: on zosyn; awaiting speciation #N/V/D: antiemetics prn, IVFs; advance diet as tolerated #NOELLE: resolved #COPD: stable #Elevated LFTs: 2/2 to fatty liver; hep panel negative; improved #Severe protein calorie malnutrition: nutrition following #GERD: transitioned to PPI PO once daily Thank you for this consult. Will follow with you [facility]
[2018-10-05] MEDS ORDERED: VIIBRYD PO ONE (22:22)
[2018-10-05] MEDS ORDERED: BENADRYL PO ONE (22:23)
[2018-10-05] MEDS: BUSPAR PO SCH (23:10)
[2018-10-06] MEDS: ZOSYN 3.375 GM in NS 50 ML IV SCH ×4 (00:14→21:30)
[2018-10-06] MEDS: FLAGYL 500 MG/NS 500 MG/100 ML IVPB IV SCH ×3 (04:17→18:32)
[2018-10-06] MEDS: NORCO-10 PO PRN ×6 (05:21→21:30)
[2018-10-06] MEDS ORDERED: BLISTEX MEDICATED BERRY LIP BALM TOP PRN (05:21)
[2018-10-06] MEDS: PROTONIX PO SCH (06:06)
[2018-10-06] MEDS ORDERED: INVANZ 1 GM/NS 1 GM/50 ML IVPB IV SCH (06:45)
[2018-10-06 06:47] LABS: INR 0.98; PROTIME 13.8 Seconds (11.0-16.0)
[2018-10-06 07:00] LABS: BASO# 0.01 X1000 (0.0-0.2); BASO% 0.1 % (0.0-0.8); EOS# 0.02 X1000 (0.0-0.7); EOS% 0.3 % (0.0-10.0); HEMATOCRIT 34.7 % (37.0-47.0); HEMOGLOBIN 11.7 g/dL (12.0-16.0); IMM GRAN# 0.03 X1000 (0.0-0.04); IMM GRAN% 0.4 % (0.0-0.5); LYMPH# 2.52 X1000 (1.2-3.4); LYMPH% 33.5 % (20.5-51.1); MCH 30.8 PG (27-31); MCHC 33.7 g/dL (33-37); MCV 91.3 FL (81-99); MONO# 0.35 X1000 (0.11-0.59); MONO% 4.6 % (1.7-9.3); MPV 9.4 FL (7.4-10.4); NEUT% 61.1 % (42.2-75.2); PLT 366 X1000 (130-400); RDW 17.5 % (11.5-14.5); WBC 7.53 X1000 (4.8-10.8)
[2018-10-06 07:02] LABS: AGAP 10; ALKALINE PHOSPHATASE 120 U/L (32-104); BUN 14 mg/dL (8-22); CALCIUM 7.3 mg/dL (8.8-10.2); CHLORIDE 114 mmol/L (98-107); COSMO 290; CREATININE 0.8 mg/dL (0.5-0.9); ESTIMATED GFR > 60; GLUCOSE 116 mg/dL (70-104); GOT 24 U/L (10-30); GPT 29 U/L (10-36); PHOSPHORUS 1.8 mg/dL (2.7-4.5); POTASSIUM 2.9 mmol/L (3.5-5.1); SODIUM 145 mmol/L (136-145); TCO2 21 mmol/L (25-35); TOTAL BILIRUBIN 0.49 mg/dL (0.20-1.00)
[2018-10-06] MEDS: BUSPAR PO SCH ×3 (08:16→21:22)
[2018-10-06] MEDS: MYCOSTATIN POWDER TOP SCH ×2 (08:17→23:32)
[2018-10-06] MEDS ORDERED: KLOR-CON PO ONE (08:22)
[2018-10-06] MEDS: SYNTHROID IV SCH (08:24)
[2018-10-06] MEDS: SANTYL OINT TOP SCH (08:25)
--- NOTE | 2018-10-06 10:03 | GENERAL SURGERY CONSULTATION ---
DATE: 10/06/2018 REASON FOR CONSULTATION: Sacral decubitus ulcer. HISTORY OF PRESENT ILLNESS: This is a 63-year-old female INCOMPLETE REPORT - DICTATION ENDS HERE cc: Saad Jeter MD
--- NOTE | 2018-10-06 10:48 | GENERAL SURGERY CONSULTATION ---
DATE: 10/06/2018 REASON FOR CONSULTATION: Sacral decubitus ulcer. HISTORY OF PRESENT ILLNESS: This is a 63-year-old female, who has had a sacral decubitus ulcer since at least April of last year. She was hospitalized for the better part of 2 months at the end of last year for what appears to be severe colitis. Since that time, she has continued to have this wound on her sacrum. She was readmitted 2 days ago with nausea, vomiting, dizziness, malaise, and further imaging consistent with diffuse colitis. Her sacral wound was noted to be erythematous and had purulent drainage. The patient does note that it is quite tender to palpation. The patient is not bedbound. She walks a little with assistance and can turn herself back and forth in the bed independently. PAST MEDICAL HISTORY: Hypothyroidism, bipolar disorder, bilateral lower extremity DVT, pulmonary embolism, COPD, hyperlipidemia, gastroesophageal reflux disease, history of TIA, bilateral adrenal adenomas, aortic stenosis, depression and chronic back pain. PAST SURGICAL HISTORY: Mihir-en-Y gastric bypass, hysterectomy, cholecystectomy, appendectomy. FAMILY HISTORY: Positive for stroke and hypertension. SOCIAL HISTORY: She lives at home normally, but I think she has been at rehab or shelter facility most recently. She does smoke 2 packs of cigarettes a day. Denies alcohol or illicit drug use. ALLERGIES: No known drug allergies. CURRENT MEDICATIONS: Santyl, Invanz, Synthroid, Flagyl, nystatin powder, Zofran, Protonix, Zosyn, Viibryd. REVIEW OF SYSTEMS: Ten systems reviewed and negative, except as noted above. PHYSICAL EXAMINATION: Vital Signs: Temperature 98.2 degrees, pulse 110, respirations 18, blood pressure 143/72, O2 saturation 98%. General: Well-developed elderly female in no acute distress, who looks her stated age. HEENT: Normocephalic, atraumatic. Extraocular muscles intact. Pupils equal, round, reactive to light. Sclerae anicteric. Neck: Supple. No thyromegaly. CV: Regular rate and rhythm. Respiratory: Bilateral breath sounds. No work of breathing. GI: Soft, nontender, nondistended. No organomegaly or mass. Extremities: No clubbing, cyanosis, or edema. Skin: Warm and dry. No rash. There is a sacral decubitus ulcer. It measures 3.3 x 2.4 x 0.7 cm. It is covered in slough and what appears to be some necrotic tissue. There is some mild purulent drainage; it is quite tender. The bone is palpable. There is some slight undermining basically circumferentially, and the surrounding skin is red, edematous and tender. There appears to be a yeast infection around this area as well involving the upper gluteal skin. LABORATORY/MICROBIOLOGY/X-RAY: White cell count 27,000 on admission, now 7,500, hemoglobin 11.7, platelet count 366. Electrolytes reviewed and notable for potassium of 2.9, albumin is 2.0. A wound culture is growing Enterobacter aerogenes. She also has E coli in her urine. Chest, abdomen and pelvis CT scan on 10/04/2018 was reviewed and showed diffuse colitis, severe fatty liver, and mild rectal stool impaction. ASSESSMENT AND PLAN: A 63-year-old female with infected sacral decubitus ulcer and multiple other medical problems. The plan will be to continue the Zosyn and Flagyl for now, as well as nystatin powder. We are planning operative debridement in the near future prior to discharge and probable placement of a wound VAC when the infection appears to be cleared. Continue Santyl ointment for now and offloading. Thank you for the consult. cc: Saad Jeter MD
--- NOTE | 2018-10-06 12:28 | PROGRESS NOTE ---
DATE: 10/06/2018 SUBJECTIVE: The patient states that she did not sleep well last night, but otherwise she states that her appetite is back. OBJECTIVE: Vital Signs: Temperature 98.2 degrees, blood pressure 143/72, heart rate 110, respirations 18, O2 saturation 98% on room air. Intake 2 L; output 1.4 L. General: This is a chronically ill-appearing, elderly female, lying in bed in no acute distress. Head: Normocephalic, atraumatic. Heart: S1, S2 normal. Tachycardic. Lungs: Equal air entry bilaterally. No crackles. No rales. Abdomen: Positive bowel sounds. Soft, nontender, nondistended. Extremities: The patient has an erythematous rash that blanches on palpation on her arms and legs. Neurologic: The patient is alert and oriented x4. LABS: White blood cell count 7.5, hemoglobin 11, hematocrit 34, platelets 366. Sodium 145, potassium 2.9, chloride 114, CO2 21. BUN 14, creatinine 0.8, glucose 116, phosphorus 1.8. ASSESSMENT AND PLAN: 1. Sepsis. Resolved. 2. Diffuse colitis. Continue with antibiotic therapy. 3. Urinary tract infection secondary to ESBL Escherichia coli. We switch the patient to Invanz. 4. Infected sacral decubitus ulceration secondary to Enterobacter aerogenes. We will continue on Zosyn. Will consult Infectious Disease for further recommendations. Also, General Surgery is following for eventual debridement. 5. Rectal bleeding. Resolved. Continue with Protonix. 6. Bilateral deep vein thrombosis and pulmonary embolism. The patient's Eliquis remains on hold. 7. Hypothyroidism. Continue on Synthroid. 8. Situational depression. Continue on the current treatment regimen. 9. Hypokalemia. Will replace the patient's potassium 10. Hypophosphatemia. Will replace the patient's phosphorus. cc: Valeria Page MD [facility]
[2018-10-06] MEDS: ZOFRAN IV PRN (12:42)
[2018-10-06] MEDS: NEUTRA-PHOS PO SCH ×4 (15:06→21:21)
[2018-10-06] MEDS: CREON PO SCH (18:40)
--- NOTE | 2018-10-06 20:05 | GASTROENTEROLOGY PROGRESS NOTE ---
DATE: 10/06/2018 SUBJECTIVE: Patient resting in bed. Her daughter is present at bedside. The patient has been feeling better today. Her abdominal pain is improving. She is eating better. She has moved her bowels. Denies any fevers, rigors, or chills. OBJECTIVE: Vital signs: Temperature 98.4, pulse 111, respiratory rate 18, blood pressure 134/71, saturating 100% on room air. Body weight of 109 pounds, 1.6 ounces. BMI 18.7 kg/m2. General Appearance: This is a moderately built, moderately nourished, lying in bed, in no acute distress. HEENT: Pale conjunctivae. No icterus. Pupils equal, reactive to light. Neck: Supple. Abdomen: Discomfort. No rebound. Extremities: No cyanosis, clubbing. Neurologic: Alert, awake, oriented. LABS: Hemoglobin and hematocrit 11.7 and 34.7, white count of 7.53, platelet count of 360, sodium 140, potassium 2.9, chloride 114, bicarb 21, anion gap 10, BUN of 14 creatinine 0.8, glucose of 116. Calcium is 7.3, phosphorus 1.8. Total bilirubin is 0.49. AST 24, ALT 29, alkaline phosphatase 130. Total protein is 4, albumin of 2. Hb A1c is 4.9. INR is 0.98, PT of 13.8. Urinalysis showed trace leukocytes. Hepatitis panel is nonreactive. Microbiology studies: Stool studies: Culture is pending. Stool for C difficile toxin and antigen are negative. Blood cultures x2 have been drawn. They are showing no growth for 48 hours. Stool for occult blood is positive. Her back wound culture is showing Enterobacter aerogenes. Urinalysis is showing E coli. IMAGING: CT of the thorax, abdomen and pelvis showed no acute process in the chest, diffuse colitis, severe fatty liver, stable left adrenal gland nodule, mild rectal stool impaction, significant wall thickening of the majority of the colon, worse of the sigmoid colon, stable surgical changes at the proximal stomach (patient has a history of gastric bypass), cholecystectomy clips noted. Stable extremely severe atrophy of the pancreas is noted. IMPRESSION AND PLAN: 1. Diffuse colitis. She had attempted colonoscopy in April [address] Hummel, but she had suboptimal prep at that time. Esophagogastroduodenoscopy at that time showed no evidence of any marginal ulcer. We will follow up on the stool studies. She could have ischemic colitis, as she has a history of severe constipation in the past. 2. History of severe constipation and fecal impaction. We will recommend taking MiraLAX 17 grams p.o. b.i.d. at home and a high-fiber diet. 3. Rectal bleeding, likely secondary to severe colitis. We will continue to watch her blood counts. 4. Anemia. Continue to watch for now. Transfuse as needed. At home she will need to be on multivitamin and iron supplementation. 5. Urinary tract infection. She is on Zosyn. 6. Sacral decubitus ulcer. This is managed by the primary team. 7. Chronic obstructive pulmonary disease, stable. The patient is a smoker. Has been counseled to quit smoking. 8. Fatty liver per the imaging. Her hepatitis panel is negative. Continue to watch liver enzymes for now. This could also be elevated because of sepsis and diffuse colitis. 9. Protein calorie malnutrition. Aware. This is chronic. We will consider Glucerna shakes with every meal. 10. Gastrointestinal prophylaxis with Protonix once daily. 11. Severe atrophy of the pancreas. We will start her on Creon 1 one capsule p.o. t.i.d. with meals to help with her fat digestion. Hopefully that will help with her malnutrition. 12. The patient has a history of bilateral deep venous thromboses and pulmonary embolism. Her Eliquis has been on hold per the primary team. 13. Hypothyroidism. She is on Synthroid. 14. Depression. Aware. 15. Talked to the patient and family at bedside, and all questions were answered. Please call us with any further issues. cc: MD Jayden Ohara MD
[2018-10-06] MEDS ORDERED: ATIVAN PO ONE (20:31)
[2018-10-06] MEDS: ICAR-C PO SCH (21:21)
[2018-10-06] MEDS: CULTURELLE PO SCH (21:22)
[2018-10-07] MEDS: NORCO-10 PO PRN ×6 (02:42→23:07)
[2018-10-07] MEDS: FLAGYL 500 MG/NS 500 MG/100 ML IVPB IV SCH ×2 (02:42→08:27)
[2018-10-07] MEDS: SANTYL OINT TOP SCH ×2 (03:59→10:13)
[2018-10-07] MEDS: ZOSYN 3.375 GM in NS 50 ML IV SCH ×2 (04:00→08:25)
[2018-10-07] MEDS: SYNTHROID PO SCH (06:07)
[2018-10-07] MEDS: PROTONIX PO SCH (06:07)
[2018-10-07 07:17] LABS: BASO# 0.01 X1000 (0.0-0.2); BASO% 0.1 % (0.0-0.8); EOS# 0.04 X1000 (0.0-0.7); EOS% 0.6 % (0.0-10.0); HEMOGLOBIN 11.7 g/dL (12.0-16.0); IMM GRAN# 0.03 X1000 (0.0-0.04); IMM GRAN% 0.4 % (0.0-0.5); LYMPH# 2.18 X1000 (1.2-3.4); LYMPH% 32.6 % (20.5-51.1); MCH 31.3 PG (27-31); MCHC 34.4 g/dL (33-37); MCV 90.9 FL (81-99); MONO# 0.44 X1000 (0.11-0.59); MONO% 6.6 % (1.7-9.3); MPV 9.4 FL (7.4-10.4); NEUT# 3.99 X1000 (1.4-6.5); NEUT% 59.7 % (42.2-75.2); PLT 318 X1000 (130-400); RBC 3.74 XMIL (4.2-5.4); RDW 17.5 % (11.5-14.5); WBC 6.69 X1000 (4.8-10.8)
[2018-10-07 08:01] LABS: AGAP 6; ALB/GLOB RATIO 1.2; ALKALINE PHOSPHATASE 110 U/L (32-104); BUN 7 mg/dL (8-22); CALCIUM 7.3 mg/dL (8.8-10.2); CHLORIDE 110 mmol/L (98-107); COSMO 278; CREATININE 0.5 mg/dL (0.5-0.9); ESTIMATED GFR > 60; GLUCOSE 73 mg/dL (70-104); GOT 20 U/L (10-30); GPT 24 U/L (10-36); PHOSPHORUS 1.3 mg/dL (2.7-4.5); POTASSIUM 3.3 mmol/L (3.5-5.1); SODIUM 141 mmol/L (136-145); TCO2 25 mmol/L (25-35); TOTAL BILIRUBIN 0.63 mg/dL (0.20-1.00); TOTAL PROTEIN 3.7 g/dL (6.3-8.3)
[2018-10-07] MEDS ORDERED: POTASSIUM PHOSPHATE 40 MMOL in NS 250 ML IV ONE (08:19)
[2018-10-07] MEDS: BUSPAR PO SCH ×3 (08:25→23:06)
[2018-10-07] MEDS: CULTURELLE PO SCH ×2 (08:25→23:07)
[2018-10-07] MEDS: VIIBRYD PO SCH (08:25)
[2018-10-07] MEDS: ICAR-C PO SCH ×2 (08:25→23:07)
[2018-10-07] MEDS: CREON PO SCH ×3 (08:26→18:19)
[2018-10-07] MEDS: CENTRUM SILVER PO SCH (08:26)
[2018-10-07] MEDS: MIRALAX PO SCH ×2 (08:26→08:40)
[2018-10-07] MEDS: NEUTRA-PHOS PO SCH ×2 (08:27→08:38)
[2018-10-07] MEDS: MYCOSTATIN POWDER TOP SCH ×2 (08:28→23:07)
[2018-10-07] MEDS: NEURONTIN PO SCH ×3 (08:50→23:06)
[2018-10-07] MEDS: VITAMIN D PO SCH (08:50)
[2018-10-07] MEDS: NICODERM PATCH TD SCH (08:54)
[2018-10-07] MEDS ORDERED: ICAR-C PO SCH (09:00)
[2018-10-07] MEDS: MERREM 1 GM in NS 50 ML IV SCH ×2 (12:24→18:08)
--- NOTE | 2018-10-07 13:01 | INFECTIOUS DISEASE CONSULT REP ---
DATE: 10/07/2018 CONCLUSION: The patient has an extended spectrum beta lactamase producing Escherichia coli urinary tract infection, which is symptomatic. She previously had a urinary tract infection with the same organism, namely the extended spectrum beta lactamase producing E coli that she now has in her urine. The patient also has on her back in the sacral area a decubitus ulcer from which Enterococcus was isolated. Finally on CT scan, the patient was found to have colitis. RECOMMENDATIONS: I have discontinued Zosyn, ertapenem and Flagyl. I have placed the patient on meropenem. The meropenem will be treating the patient's urinary tract infection, the back wound decubitus ulcer and the patient's colitis. PRESENT ILLNESS: It was very difficult for me to get a history from the patient, and the information I did get was from the computer. The patient was admitted with a chief complaint of nausea, vomiting, and diarrhea. She has been found to have a urinary tract infection with an extended spectrum beta lactamase producing E coli. She also has a low back infected decubitus ulcer from which Enterobacter was recovered. On CT scan she was found to have diffuse colitis. PAST MEDICAL HISTORY: Positive for hypothyroidism, hyperlipidemia, bipolar disorder, fibromyalgia, arthritis, deep venous thrombosis, pulmonary embolus, COPD, Clostridium difficile colitis, extended spectrum beta lactamase producing E coli, urinary tract infection, and gastroesophageal reflux disease. PAST SURGICAL HISTORY: Positive for appendectomy, cholecystectomy, hysterectomy, gastric bypass, and cervical spine surgery. REVIEW OF SYSTEMS: I was unable to obtain this from the patient. SOCIAL HISTORY: The patient smokes cigarettes but does not drink alcoholic beverages or use illicit drugs. ALLERGIES: No known drug allergies. HOME MEDICATIONS: Eliquis, BuSpar, Bentyl, vitamins, Neurontin, hydroxyzine, Culturelle, Synthroid, ProAmatine, pravastatin, tizanidine, and Viibryd. PHYSICAL EXAMINATION: Vital Signs: Temperature 97.3 degrees, pulse 113, respirations 16, blood pressure 140/80, patient weighs 112 pounds. General: This is an ill-appearing, malnourished- appearing, middle-aged female who did not seem to be in any acute distress this morning. HEENT: No drainage was noted from the nose or the ears. She is edentulous. She did not have any white patches on her tongue. Neck: The patient did not have pain when she moved her neck. Lungs: Clear to auscultation. Cardiovascular: Heart rate was irregular but on EKG it looked like each QRS interval was preceded by a P wave. I do not think she is in atrial fibrillation. She may have a sinus arrhythmia. Abdomen: Soft and slightly tender. Neurologic: The patient was lethargic. When I asked her questions she usually did not answer them fully. The patient could move her extremities. There was no tremor. Regarding her memory, she had very poor memory about her medical illnesses. Back: In the sacral area the patient has about a 3 to 4 cm decubitus ulcer. It was covered by devitalized and somewhat purulent-looking tissue. There was some surrounding erythema as well. There was not an odor to the wound. Thank you for the consult. cc: Will Zambrano MD MTDD
[2018-10-07] MEDS: ZOFRAN IV PRN ×2 (13:20→18:07)
--- NOTE | 2018-10-07 14:23 | GENERAL SURGERY PROGRESS NOTE ---
PROCEDURE DATE: 10/07/2018 SUBJECTIVE: The patient continues to have some continued abdominal pain and nausea. She is eating a little but not a lot. OBJECTIVE: She is afebrile. Vital signs are stable.General: She is awake, alert, oriented x4. No acute distress. Sacral decubitus ulcer is bandaged and was noted to be somewhat purulent, red and tender yesterday. ASSESSMENT/PLAN: A 63-year-old female with stage IV sacral decubitus ulcer which is infected. We are planning operative debridement tomorrow. I discussed risks, benefits, alternatives with her and her family. She understands and agrees to proceed. cc: Saad Jeter MD
--- NOTE | 2018-10-07 14:37 | PROGRESS NOTE ---
DATE: 10/07/2018 SUBJECTIVE: The patient is resting comfortably in bed. She was noted to be having hallucinations overnight. OBJECTIVE: Vital Signs: Temperature 97.4 degrees, blood pressure 107/58, heart rate 113, respirations 16, O2 saturation is 98% on room air. General: This is an elderly female, lying in bed, in no acute distress. Heart: S1, S2 normal. Lungs: Clear to auscultation bilaterally. Abdomen: Positive bowel sounds. Soft, nontender, nondistended. Extremities: The patient has multiple areas of bruising on her arms and legs. She also has an erythematous rash on her arms and legs. Neurologic: The patient is alert and oriented x3. Labs: White blood cell count 6.6, hemoglobin 11, hematocrit 34, platelets 318,000. Sodium 141, potassium 3.3, chloride 110, BUN 7, creatinine 0.5, glucose 73, phosphorus 1.3, albumin 2. ASSESSMENT AND PLAN: 1. Sepsis. Resolved. 2. Urinary tract infection secondary to ESBL Escherichia coli. The patient has been switched to Merrem by Dr. Zambrano. 3. Colitis. Continue on the antibiotic regimen as directed by Dr. Zambrano. 4. Infected sacral decubitus ulcer secondary to Enterobacter. Continue with antibiotic therapy. Debridement planned for tomorrow by general surgeon. 5. Severe protein calorie malnutrition. We will consult with the dietitian. 7. Rectal bleeding. Resolved. 8. Bilateral deep venous thrombosis and pulmonary embolism. We will continue to hold the patient's anticoagulant. We will likely restart it tomorrow after surgery. 9. Hypothyroidism. Continue on Synthroid. 10. Situational depression. Continue on BuSpar. 11. Hypophosphatemia. We will replace the patient's phosphorus. 12. Hypokalemia. We will replace the patient's potassium. 13. Physical therapy has been consulted. cc: Valeria Page MD [facility]TD[facility]
--- NOTE | 2018-10-07 20:16 | Diag Imaging Result Doc PS360 ---
EXAM: LUNG SCAN / VQ INDICATION: recent pulmonary embolism TECHNIQUE: 33.6 mCi of aerosolized technetium 99 DTPA was administered for the ventilation portion of the scan. 5.6 mCi of IV technetium 99 MAA was administered for the perfusion portion of the scan. COMPARISON: None. FINDINGS: Note that the patient could not raise her right arm during the study. This may significantly limit the diagnostic quality of the study. There is a perfusion defect that is somewhat wedge-shaped on the RPO projection. It is probably at least partially matched on the ventilation portion of the scan. This defect could easily be due to the patient's overlying arm. There is a similar matched defect involving the superior aspect of the right lung on the lateral projection. Again, this may be due to the patient's overlying arm. No perfusion defects are identified involving the left lung. IMPRESSION: 1.Matched or partially matched perfusion defects involving the right lung on the lateral and RPO projections that may represent artifact as the patient could not raise her right arm. 2.Indeterminate study. Electronically signed by John Love 10/07/2018 8:13 PM
[2018-10-07] MEDS ORDERED: HEPARIN 25,000 UNITS/D5W 25,000 UNIT/250 ML IV.SOLN IV SCH (20:30)
--- NOTE | 2018-10-07 20:43 | Diag Imaging Result Doc PS360 ---
EXAM: CHEST-2 VIEWS INDICATION: recheck for nuclear medicine TECHNIQUE: 3 views COMPARISON: 10/04/2018 FINDINGS: The lungs are grossly clear. And crosstable lateral views there does appear to be a small right pleural effusion. There is no evidence of pneumothorax. There is evidence of prior granulomatous disease, stable. The cardiomediastinal silhouette and central vasculature are grossly unremarkable. IMPRESSION: Small right effusion. No definite acute chest pathology, otherwise. Electronically signed by John Love 10/07/2018 8:41 PM
[2018-10-07] MEDS ORDERED: ATIVAN PO ONE (22:51)
[2018-10-07] MEDS ORDERED: HEPARIN IV ONE (23:29)
[2018-10-07] MEDS ORDERED: HEPARIN 25,000 UNIT in NS 250 ML IV SCH (23:45)
[2018-10-07] MEDS ORDERED: NS 500 ML ONE (23:45)
[2018-10-08] MEDS: MERREM 1 GM in NS 50 ML IV SCH ×3 (03:38→22:15)
--- NOTE | 2018-10-08 04:27 | GASTROENTEROLOGY PROGRESS NOTE ---
DATE: 10/07/2018 SUBJECTIVE: She is feeling better. She denies any fevers, rigors, chills. She does complain of back pain 3/10. She also complains of also complains of discomfort in the abdomen in the appendiceal region. She denies any nausea or vomiting. She moved her bowels today. She was able to eat 70% of her meal this morning. OBJECTIVE: Vital Signs: Respiratory of 16. Blood pressure 120/62. Saturating on room air. General: Thinly built, lying in bed, in no acute distress. HEENT: Pale conjunctivae. No icterus. Neck: Supple. Abdomen: discomfort in the periumbilical region. No rebound or guarding. Extremities: No cyanosis, clubbing, or edema. Neurologic: She is alert, awake, oriented. LABORATORY DATA: Hemoglobin and hematocrit 11.7 and 34.0 , white count 6.69, platelet count of 318,000. Sodium 141, potassium 3.3, chloride 110, bicarbonate 25, BUN of 7, creatinine 0.5. Glucose of 130. Calcium is 7.3, phosphorus 1.3. Total bilirubin is 0.63. AST 20, ALT 24, alkaline phosphatase 110. Total protein 3.7 . Hepatitis panel is nonreactive. Stool culture showing no enteric pathogen on preliminary study. The back drainage wound culture showing Enterobacter aerogenes. C. difficile toxin and antigen done on 10/04/2018 were negative. Urine culture showing E. Coli. Blood culture x2 negative at 48 hours. Stool for occult blood on 10/04 was positive. IMPRESSION AND PLAN: 1. Urinary tract infection secondary to extended-spectrum beta-lactamase Escherichia coli. She has been switched to meropenem by Dr. Zambrano. 2. Colitis. She is on antibiotic regimen. This is likely ischemic colitis as the patient has a history of prior impaction and constipation. We will continue to follow. We will start on Culturelle 1 capsule p.o. b.i.d. May need Flex sig in few days. 3. Infected sacral decubitus ulcer secondary to Enterobacter. She is on antibiotics per Infectious Disease team. She is planned for debridement tomorrow by General Surgery. 4. Severe protein-calorie malnutrition. Continue management by the dietitian team. 5. Rectal bleeding is resolved. 6. History of bilateral deep venous thromboses and pulmonary embolism. Her anticoagulation is withheld for surgery tomorrow. 7. Hypothyroidism on Synthroid. 8. Depression. She is on BuSpar. 9. Electrolyte imbalance per primary team. 10. Sepsis. She is on antibiotics per primary team. 11. Anemia. Will continue supplements daily. 12. Chronic smoker. Patient counseled to quit smoking. She will continue NicoDerm patch. 13. GI prophylaxis with PPIs. Protonix once daily. 14. Chronic constipation. She will continue on MiraLAX 17 g once daily. Above plans discussed with the patient, and all questions answered. Please call us with any further questions. cc: MD Jayden Ohara MD MTDD
[2018-10-08] MEDS: NORCO-10 PO PRN ×2 (05:29→19:46)
[2018-10-08] MEDS: SYNTHROID PO SCH ×2 (05:29→06:26)
[2018-10-08] MEDS: PROTONIX PO SCH ×2 (05:29→06:26)
[2018-10-08 05:45] LABS: BASO# 0.01 X1000 (0.0-0.2); BASO% 0.2 % (0.0-0.8); EOS# 0.15 X1000 (0.0-0.7); EOS% 2.7 % (0.0-10.0); HEMATOCRIT 33.3 % (37.0-47.0); HEMOGLOBIN 11.3 g/dL (12.0-16.0); IMM GRAN# 0.03 X1000 (0.0-0.04); IMM GRAN% 0.5 % (0.0-0.5); LYMPH# 2.76 X1000 (1.2-3.4); LYMPH% 48.8 % (20.5-51.1); MCH 30.8 PG (27-31); MCHC 33.9 g/dL (33-37); MCV 90.7 FL (81-99); MONO# 0.35 X1000 (0.11-0.59); MONO% 6.2 % (1.7-9.3); MPV 9.1 FL (7.4-10.4); NEUT# 2.36 X1000 (1.4-6.5); NEUT% 41.6 % (42.2-75.2); PLT 285 X1000 (130-400); RBC 3.67 XMIL (4.2-5.4); RDW 17.7 % (11.5-14.5); WBC 5.66 X1000 (4.8-10.8)
[2018-10-08 06:22] LABS: AGAP 7; ALBUMIN 1.8 g/dL (3.5-5.0); BUN 5 mg/dL (8-22); CALCIUM 7.2 mg/dL (8.8-10.2); CHLORIDE 112 mmol/L (98-107); COSMO 281; CREATININE 0.4 mg/dL (0.5-0.9); ESTIMATED GFR > 60; GLUCOSE 78 mg/dL (70-104); PHOSPHORUS 1.8 mg/dL (2.7-4.5); POTASSIUM 3.1 mmol/L (3.5-5.1); SODIUM 143 mmol/L (136-145); TCO2 24 mmol/L (25-35)
[2018-10-08] MEDS ORDERED: HEPARIN IV ONE ×2 (06:31→17:32)
[2018-10-08] MEDS ORDERED: HEPARIN 25,000 UNIT in NS 250 ML IV SCH ×2 (06:45→17:33)
[2018-10-08] MEDS ORDERED: MAGNESIUM SULFATE 2 GM/S.W.I. 2 GM/50 ML IVPB IV ONE (08:00)
[2018-10-08] MEDS ORDERED: POTASSIUM PHOSPHATE 50 MMOL in NS 250 ML IV ONE (09:00)
[2018-10-08] MEDS ORDERED: XYLOCAINE-MPF 2% ONE (10:31)
[2018-10-08] MEDS ORDERED: VERSED ONE (10:32)
[2018-10-08] MEDS ORDERED: DIPRIVAN 1% ONE (10:32)
[2018-10-08] MEDS ORDERED: MORPHINE IV ONE (10:58)
[2018-10-08] MEDS ORDERED: SODIUM CHLORIDE 0.9% 10 ML ONE (11:44)
[2018-10-08] MEDS ORDERED: LR 1,000 ML ONE (11:50)
--- NOTE | 2018-10-08 12:02 | GASTROENTEROLOGY PROGRESS NOTE ---
DATE: 10/08/2018 SUBJECTIVE: Resting in bed. The patient is feeling a little better today. She denies any fevers, rigors, chills. She is eating better. She moved her bowels today. She is NPO today and scheduled for Wound debridement with surgery. OBJECTIVE: Vital signs: Temperature 98.2, pulse of 91, respiratory rate 16, blood pressure 122/60, saturating 98% room air. General Appearance: Thinly built, lying in bed, in no acute distress. HEENT: Pale conjunctivae. No icterus. Neck: Supple. Abdomen: Soft, mild discomfort with no rebound. Extremities: No cyanosis, clubbing. She has sacral decubitus ulcer. Neurologic: She is alert, awake, oriented. LABORATORY DATA: Hemoglobin and hematocrit 11.3 and 33.3, white count of 5.6, platelet count of 285,000. Sodium of 143, potassium 3.1, chloride 112, bicarb 24, anion gap 7, BUN of 5, creatinine 0.4, glucose of 81, calcium is 7.2, phosphorus 1.8, magnesium 1.4, albumin of 1.8. PTT of 34.1. IMPRESSION AND PLAN: 1. Colitis, likely ischemic colitis because the patient has history of prior constipation and impaction. We will follow along. She may benefit from flexible colonoscopy at some point. Will assess in a day and see if there is any current colonic ischemia. 2. Urinary tract infection. She is being treated with meropenem. 3. Infected sacral decubitus ulcer. She is scheduled for debridement today. She is on being managed per primary team. 4. Severe protein calorie malnutrition. Dietitian team has been consulted. 5. Rectal bleeding, resolved. 6. History of bilateral deep venous thrombosis and pulmonary embolism. She was started on heparin drip earlier today. Currently Her anticoagulation has been withheld for surgery today. 7. Hypothyroidism. She is on Synthroid. 8. Depression. She is on BuSpar. 9. Anemia. Continue to watch for now. Transfuse as needed. 10. Chronic smoker. The patient was counseled to quit smoking. 11. Gastrointestinal prophylaxis with proton pump inhibitors. 12. Chronic constipation. Continue MiraLAX once daily. The above plans were discussed with the patient and all questions were answered. Please call us with any further questions. cc: MD AUSTYN Ohara
--- NOTE | 2018-10-08 12:06 | INFECTIOUS DISEASE PROGRESS NO ---
DATE: 10/08/2018 PRESENT ILLNESS: The patient has an extended-spectrum [id number]-[id number] E coli urinary tract infection and an Enterobacter-infected sacral decubitus. MEDICATIONS: The patient is receiving meropenem. This is day 1 of treatment with it. PHYSICAL EXAMINATION: Vital Signs: Temperature is 98.2 degrees, pulse 91, respirations 16, blood pressure 122/62. General: This is a ill-appearing malnourished middle-aged female. She is in no acute distress, except when I turn her on her side to look to add to see her sacral decubitus ulcer. Head, Eyes, Ears, Nose, and Throat: She can hear my spoken words and see near objects. She does not have any white coating on her tongue. Neck: She does not have any pain when she moves her neck. Lungs: Clear to auscultation. Cardiovascular: Heart rate is irregular. Abdomen: Soft and nontender. Back: I removed the dressing from the patient's sacral decubitus ulcer. It has devitalized tissue in its base and some surrounding erythema also. Neurologic: The patient is awake. She can move her extremities. There is no tremor. DIAGNOSTIC STUDIES: The lung scan is indeterminate for pulmonary embolus. The chest x-ray shows clear lung reece with a small right pleural effusion. Urine culture grew an extended-spectrum gxjp-xruciylsc-xhouisdai E coli. The patient's sacral decubitus ulcer grew Enterobacter. CBC shows a white count of 5660, hemoglobin 11.3, and platelet count of 285,000. The patient's creatinine is 0.4, GFR is greater than 60. Hepatitis panel is nonreactive. ASSESSMENT AND PLAN: The patient has: 1. Asymptomatic urinary tract infection. 2. Infected sacral decubitus ulcer. I plan to continue meropenem. Dr. Jeter is taking the patient to surgery today to debride the patient's sacral decubitus infected wound. PATIENT'S COMORBIDITIES: 1. She looks chronically ill and somewhat malnourished. 2. She does not appear to be able to get out of her bed and ambulate. 3. Cigarette smoking. cc: Will Zambrano MD
[2018-10-08] MEDS ORDERED: FENTANYL ONE (12:37)
[2018-10-08] MEDS: DILAUDID ONE ×2 (13:06→13:10)
--- NOTE | 2018-10-08 13:07 | OPERATIVE NOTE ---
PROCEDURE DATE: 10/08/2018 PREOPERATIVE DIAGNOSIS: Sacral decubitus ulcer. POSTOPERATIVE DIAGNOSIS: Sacral decubitus ulcer. PROCEDURE: Debridement of skin and subcutaneous tissue less than 20 square cm. SURGEON: Saad Jeter MD. ANESTHESIA: General. ESTIMATED BLOOD LOSS: 3 mL. COMPLICATIONS: None apparent. SPECIMENS: None. FINDINGS: The ulcer on the sacrum measured 3 x 3 x 1.8 cm. This was the area debrided. This was an excisional debridement back to healthier bleeding edges. This was a stage III ulcer. The bone was palpable, but covered by soft tissue. There was no significant granulation tissue present, but there was slough throughout the wound bed. TECHNIQUE: She was brought to the operating room, and placed on her right side after general anesthesia was induced. She was prepped and draped in usual sterile fashion. A 10 blade was used to sharply excise the slough from the wound bed as well as the skin edges back to healthier bleeding edges. Cautery was then used for hemostasis. The wound was washed with saline, and packed with a Jenae moistened 4 x 4 gauze. There were no apparent complications. She was awakened in stable condition and transferred to recovery room. cc: Saad Jeter MD
[2018-10-08] MEDS ORDERED: GOLYTELY PO ONE (14:00)
--- NOTE | 2018-10-08 14:49 | PROGRESS NOTE ---
DATE: 10/08/2018 SUBJECTIVE: The patient is resting comfortably in bed. No acute events noted overnight. OBJECTIVE: Vital Signs: Temperature 98.2 degrees blood pressure 122/62, heart rate 103, respirations 20, O2 saturation 99% on room air. General: This is a chronically ill-appearing elderly female lying in bed in no acute distress. Heart: S1, S2 normal. Tachycardic. Lungs: Clear to auscultation bilaterally. No wheezing. No rales. No rhonchi. Abdomen: Positive bowel sounds. Soft, nontender, nondistended. Extremities: 1+ edema. Neurologic: The patient is alert and oriented x4. LABS: White blood cell count 5.6, hemoglobin 11, hematocrit 33, platelets 285,000, sodium 143, potassium 3.1, chloride 112, CO2 24, BUN 5, creatinine 0.4, glucose 78. Calcium 7.2, phosphorus 1.8, magnesium 1.4, albumin 1.8. ASSESSMENT AND PLAN: 1. Sepsis. Resolved. 2. Urinary tract infection secondary to ESBL Escherichia coli. Continue on Merrem. 3. Colitis. Endoscopy planned for tomorrow. Continue on Merrem. 4. Infected sacral decubitus ulcerations secondary to Enterobacter aerogenes. Continue with antibiotic therapy. The patient is scheduled for debridement today. 5. Severe protein calorie malnutrition. Continue with meal supplements. 6. Hypothyroidism. Continue on Synthroid. 7. Tobacco dependence. The patient has been counseled about smoking cessation. Continue with the Nicoderm patch. 8. Rectal bleeding. Resolved. 9. Bilateral deep venous thrombosis and pulmonary embolism. Continue with the heparin drip. Transition back to [facility] after endoscopy tomorrow. 10. Situational depression. Continue on BuSpar. 11. Hypophosphatemia. Will replace the patient's phosphorus. 12. Hypokalemia. Will replace the patient's potassium. Disposition. Continue with physical therapy. cc: Valeria Page MD MTDD
[2018-10-08] MEDS: CREON PO SCH ×4 (15:00→17:53)
[2018-10-08] MEDS: NEURONTIN PO SCH ×3 (15:01→22:17)
[2018-10-08] MEDS: ICAR-C PO SCH ×2 (15:03→22:17)
[2018-10-08] MEDS: MIRALAX PO SCH (15:03)
[2018-10-08] MEDS: BUSPAR PO SCH ×3 (15:03→22:17)
[2018-10-08] MEDS: CENTRUM SILVER PO SCH (15:04)
[2018-10-08] MEDS: VIIBRYD PO SCH (15:04)
[2018-10-08] MEDS: SANTYL OINT TOP SCH (15:05)
[2018-10-08] MEDS: NICODERM PATCH TD SCH (15:05)
[2018-10-08] MEDS: CULTURELLE PO SCH ×2 (15:05→22:17)
[2018-10-08] MEDS: MYCOSTATIN POWDER TOP SCH ×2 (15:05→23:22)
[2018-10-08] MEDS: ZOFRAN IV PRN (20:04)
[2018-10-08] MEDS: PERIDEX MT SCH (22:16)
[2018-10-08] MEDS ORDERED: ATIVAN PO ONE (23:54)
[2018-10-09] MEDS: NORCO-10 PO PRN ×6 (00:30→20:07)
[2018-10-09] MEDS: MERREM 1 GM in NS 50 ML IV SCH ×3 (04:36→21:18)
[2018-10-09] MEDS: PROTONIX PO SCH (06:16)
[2018-10-09] MEDS: SYNTHROID PO SCH (06:16)
[2018-10-09 06:43] LABS: BASO# 0.03 X1000 (0.0-0.2); BASO% 0.5 % (0.0-0.8); EOS# 0.13 X1000 (0.0-0.7); EOS% 2.3 % (0.0-10.0); HEMOGLOBIN 10.4 g/dL (12.0-16.0); IMM GRAN# 0.02 X1000 (0.0-0.04); IMM GRAN% 0.4 % (0.0-0.5); LYMPH# 2.19 X1000 (1.2-3.4); LYMPH% 39.5 % (20.5-51.1); MCHC 33.5 g/dL (33-37); MCV 92.5 FL (81-99); MONO# 0.37 X1000 (0.11-0.59); MONO% 6.7 % (1.7-9.3); MPV 9.6 FL (7.4-10.4); NEUT# 2.81 X1000 (1.4-6.5); NEUT% 50.6 % (42.2-75.2); PLT 275 X1000 (130-400); RBC 3.35 XMIL (4.2-5.4); RDW 18.4 % (11.5-14.5); WBC 5.55 X1000 (4.8-10.8)
[2018-10-09 07:16] LABS: AGAP 7; ALBUMIN 1.7 g/dL (3.5-5.0); BUN 5 mg/dL (8-22); CALCIUM 7.3 mg/dL (8.8-10.2); CHLORIDE 117 mmol/L (98-107); COSMO 293; CREATININE 0.4 mg/dL (0.5-0.9); ESTIMATED GFR > 60; GLUCOSE 158 mg/dL (70-104); PHOSPHORUS 1.7 mg/dL (2.7-4.5); POTASSIUM 3.3 mmol/L (3.5-5.1); SODIUM 147 mmol/L (136-145); TCO2 23 mmol/L (25-35)
[2018-10-09] MEDS ORDERED: ROBINUL ONE (07:46)
[2018-10-09] MEDS ORDERED: XYLOCAINE-MPF 2% ONE (07:46)
[2018-10-09] MEDS ORDERED: FENTANYL ONE (07:46)
[2018-10-09] MEDS ORDERED: DIPRIVAN 1% ONE (07:47)
[2018-10-09] MEDS: NEURONTIN PO SCH ×3 (08:13→21:21)
[2018-10-09] MEDS: CENTRUM SILVER PO SCH (08:13)
[2018-10-09] MEDS: ICAR-C PO SCH ×2 (08:13→21:21)
[2018-10-09] MEDS: NICODERM PATCH TD SCH (08:13)
[2018-10-09] MEDS: PERIDEX MT SCH ×2 (08:13→21:22)
[2018-10-09] MEDS: BUSPAR PO SCH ×3 (08:13→21:20)
[2018-10-09] MEDS: MIRALAX PO SCH (08:13)
[2018-10-09] MEDS: CREON PO SCH ×3 (08:13→18:03)
[2018-10-09] MEDS: VIIBRYD PO SCH (08:14)
[2018-10-09] MEDS: CULTURELLE PO SCH ×2 (08:14→21:20)
[2018-10-09] MEDS: SANTYL OINT TOP SCH (08:15)
[2018-10-09] MEDS: MYCOSTATIN POWDER TOP SCH ×2 (09:11→21:21)
[2018-10-09] MEDS: ZOFRAN IV PRN (09:59)
--- NOTE | 2018-10-09 12:49 | PROGRESS NOTE ---
DATE: 10/09/2018 SUBJECTIVE: The patient is resting comfortably in bed. Not in any obvious distress. OBJECTIVE: Vital Signs: Temperature 98.5 degrees, pulse 57, respirations 16, blood pressure 125/70, oxygen saturation is 97%. HEENT: She is atraumatic, normocephalic. Cardiovascular System: S1, S2. Respiratory System: Has evidence of good air entry bilaterally. Abdomen: Soft, nontender. No masses felt. Extremities: No evidence of edema. Central Nervous System: No obvious focal deficit noted. Laboratory Data: WBCs 5.55, hematocrit 31.0, with a platelet count of 275,000. Sodium is 143, potassium 3.3, chloride is 117, bicarb is 23, BUN is 5, creatinine 0.4. ASSESSMENT AND PLAN: 1. Urinary tract infection secondary to extended-spectrum B-lactamase Escherichia coli. Continue antibiotic regimen. 2. Colitis. Endoscopy planned. 3. Infected sacral decubitus ulcer. Continue antibiotics as well as local wound care. 4. Hypothyroidism. Continue levothyroxine. 5. Rectal bleed, resolved. 6. Deep venous thrombosis with pulmonary embolism. Continue heparin infusion with plans to transition to Eliquis after endoscopy is completed. 7. Situational depression. Continue buspirone. 8. Hypokalemia. Replace potassium level. Also of note, phosphorus and magnesium level are low, which both of them will be replaced as well. 9. Deep vein thrombosis prophylaxis. Sequential compression devices. cc: Lucas Cabrera MD
--- NOTE | 2018-10-09 13:11 | INFECTIOUS DISEASE PROGRESS NO ---
DATE: 10/09/2018 PRESENT ILLNESS: The patient has an extended spectrum beta lactamase producing E coli urinary tract infection and Enterobacter infected sacral decubitus ulcer. MEDICATIONS: This is day 2 of treatment with meropenem. PHYSICAL EXAMINATION: Vital Signs: Temperature is 98 degrees, pulse 92, respirations 16, blood pressure 123/61. General: This is an ill-appearing and malnourished-appearing, middle-aged female. She is in no acute distress. Head/eyes/ears/nose/throat: She can hear my spoken words and see near objects. She does not have any white patch patches on her tongue. Neck: No meningismus. Lungs: Clear to auscultation. Cardiovascular: Heart rate is irregular, but it seems as though there are P waves before each QRS wave. Abdomen: Soft and nontender. Back: This patient this has a dry dressing on it. The patient had surgery on the ulcer yesterday performed by Dr. Jeter. Neurologic: The patient is awake she can move her extremities. There is no tremor. LAB AND X-RAY: There is no new radiographic study. The CBC shows a white count of 5550, hemoglobin 10.4, and platelet count 275,000, creatinine is 0.4. GFR is greater than 60. As mentioned above there is no new radiographic study for today. ASSESSMENT AND PLAN: The patient has the urinary tract infection and infected sacral decubitus ulcer. Dr. Jeter's note said that the patient's infection went down deep. Dr. Jeter's note indicated that he did a deep debridement of the tissues, but the infection did not extend to the bone. Dr. Jeter did the debridement of the patient's ulcer. He did an excisional debridement back to healthier bleeding edges. The bone was palpable, but it was covered by soft tissue and therefore there was no direct involvement of the bone with infection. ASSESSMENT AND PLAN: The patient has an infected sacral decubitus that has been debrided. It does not extend to bone. I plan to continue the meropenem. COMORBIDITIES: The patient looks chronically ill and malnourished. She also is a cigarette smoker. cc: Will Zambrano MD
--- NOTE | 2018-10-09 16:07 | PROVIDER PROGRESS NOTE ---
Progress Note SUBJECTIVE: She underwent sacral wound debridement with Dr. Jeter yesterday. No acute overnight events. Afebrile. No V/F, CP, SOB. She reports abdominal "soreness" improving. +nausea. However, she is tolerating diet and says she "eats like a hog...I can't get enough". At home, she reports drinking 5 chocolate Ensures per day. She reports post-surgical pain on buttocks. +BM. No rectal bleeding. OBJECTIVE: Last Vital Signs Temp 98.5 F 10/09/18 11:36 Pulse 87 10/09/18 11:36 Resp 16 10/09/18 11:36 BP 125/70 10/09/18 11:36 Pulse Ox 97 10/09/18 11:36 Height 5 ft 4 in Weight 122 lb 9.6 oz GEN: awake, alert, NAD HEENT: anicteric, MMM NECK: supple, no jvd PULM: CTAB, no wheezing CV: RRR, no murmurs ABD: soft NT/ND, NABS, no rebound or guarding EXT: WWP, bruising, no cce NEURO: nonfocal LABS: 10/09/18 10/09/18 06:10 06:10 WBC 5.55 Hgb 10.4 L Plt Count 275 Sodium 147 H Potassium 3.3 L Chloride 117 H Carbon Dioxide 23 L BUN 5 L Creatinine 0.4 L Glucose 158 H D Albumin 1.7 L A/P: Ms. Rebekah Manrique is a 63 year old woman with COPD, BPD, GERD, h/o CDI, h/o DVT/PE, RYGB, chronic iron deficiency anemia, and tobacco abuse who presented with sepsis found to have diffuse colitis, infected sacral decubitus ulcer growing Enterobacter, and E coli UTI. She is POD#1 after sacral wound debridement. Colitis likely 2/2 to ischemic in the setting of hypotension vs infectious. Stool studies negative. Leukocytosis and lactate resolved. She is tolerating diet and says she is "not eating enough," which is encouraging that her colitis is resolving. #Colitis: improving per clinical picture; no rectal bleeding; VSS, leukocytosis resolved; on abx per ID - avoid hypotension, constipation, NSAIDs - smoking cessation - repeat CT to assess for resolution in 6 weeks - at this point, sigmoidoscopy would be low yield given her clinical improvement recent partial colonoscopy in 04/2018 #Rectal bleeding: resolved; hgb stable #Infected decubitus sacral ulcer: s/p debridement; on abx per ID; wound RN; surgery following #UTI: on abx #N/V/D: resolved #Hypokalemia: replete lytes prn #Severe protein calorie malnutrition: eating well; nutrition following; appreciate recs #COPD: stable #Elevated LFTs: 2/2 to fatty liver; hep panel negative; improved #GERD: cont PPI PO once daily Will follow with you
--- NOTE | 2018-10-09 16:16 | GENERAL SURGERY PROGRESS NOTE ---
DATE: 10/09/2018 SUBJECTIVE: The patient is doing well. She says her wound on her sacrum is sore. She has no new complaints. OBJECTIVE: Vital Signs: She is afebrile. Vital signs are stable. General: She is awake, alert, in no acute distress. Skin: The sacral wound is dressed and dry. LABORATORY: White blood cell count 5, hemoglobin 10.4. PTT greater than 215. Electrolytes reviewed and unremarkable. ASSESSMENT AND PLAN: A 63-year-old female with stage III sacral decubitus ulcer and multiple other medical problems. For the ulcer, we will treat it with Vashe wet-to-dry gauze for now, then Santyl at home, and a future wound VAC may be necessary. cc: Saad Jeter MD
[2018-10-09] MEDS ORDERED: HEPARIN IV ONE (16:33)
[2018-10-09] MEDS: DILAUDID IV PRN ×2 (17:07→23:07)
[2018-10-09] MEDS ORDERED: HEPARIN 25,000 UNIT in NS 250 ML IV SCH ×2 (18:00→18:25)
[2018-10-10] MEDS ORDERED: ATIVAN PO ONE (00:22)
[2018-10-10] MEDS: NORCO-10 PO PRN ×6 (00:35→23:20)
[2018-10-10] MEDS: MERREM 1 GM in NS 50 ML IV SCH ×3 (05:12→21:12)
[2018-10-10 06:33] LABS: BASO# 0.03 X1000 (0.0-0.2); BASO% 0.5 % (0.0-0.8); EOS# 0.12 X1000 (0.0-0.7); EOS% 1.9 % (0.0-10.0); HEMATOCRIT 31.8 % (37.0-47.0); HEMOGLOBIN 10.5 g/dL (12.0-16.0); IMM GRAN# 0.03 X1000 (0.0-0.04); IMM GRAN% 0.5 % (0.0-0.5); LYMPH# 2.05 X1000 (1.2-3.4); LYMPH% 33.1 % (20.5-51.1); MCH 31.2 PG (27-31); MCV 94.4 FL (81-99); MONO# 0.47 X1000 (0.11-0.59); MONO% 7.6 % (1.7-9.3); MPV 9.5 FL (7.4-10.4); NEUT# 3.49 X1000 (1.4-6.5); NEUT% 56.4 % (42.2-75.2); PLT 272 X1000 (130-400); RBC 3.37 XMIL (4.2-5.4); RDW 19.3 % (11.5-14.5); WBC 6.19 X1000 (4.8-10.8)
[2018-10-10 06:58] LABS: AGAP 6; ALB/GLOB RATIO 1.1; ALBUMIN 1.8 g/dL (3.5-5.0); ALKALINE PHOSPHATASE 97 U/L (32-104); BUN 6 mg/dL (8-22); CALCIUM 7.4 mg/dL (8.8-10.2); CHLORIDE 114 mmol/L (98-107); COSMO 280; CREATININE 0.4 mg/dL (0.5-0.9); ESTIMATED GFR > 60; GLUCOSE 79 mg/dL (70-104); GOT 19 U/L (10-30); GPT 21 U/L (10-36); POTASSIUM 3.5 mmol/L (3.5-5.1); SODIUM 142 mmol/L (136-145); TCO2 22 mmol/L (25-35); TOTAL BILIRUBIN 0.31 mg/dL (0.20-1.00); TOTAL PROTEIN 3.5 g/dL (6.3-8.3)
[2018-10-10] MEDS ORDERED: MORPHINE IV PRN (07:47)
[2018-10-10] MEDS: PROTONIX PO SCH (08:04)
[2018-10-10] MEDS: SYNTHROID PO SCH (08:05)
[2018-10-10] MEDS: BUSPAR PO SCH ×3 (09:51→21:13)
[2018-10-10] MEDS: CULTURELLE PO SCH ×2 (09:52→21:13)
[2018-10-10] MEDS: NEURONTIN PO SCH ×3 (09:52→21:13)
[2018-10-10] MEDS: VIIBRYD PO SCH (09:52)
[2018-10-10] MEDS: MIRALAX PO SCH (09:52)
[2018-10-10] MEDS: ICAR-C PO SCH ×2 (09:52→21:13)
[2018-10-10] MEDS: NICODERM PATCH TD SCH (09:52)
[2018-10-10] MEDS: CREON PO SCH ×3 (09:52→17:58)
[2018-10-10] MEDS: CENTRUM SILVER PO SCH (09:52)
[2018-10-10] MEDS: PERIDEX MT SCH ×2 (09:53→21:12)
--- NOTE | 2018-10-10 11:08 | INFECTIOUS DISEASE PROGRESS NO ---
DATE: 10/10/2018 PRESENT ILLNESS: Ms. Manrique is being treated for an extended spectrum beta lactamase producing Escherichia coli urinary tract infection and Enterobacter infected sacral decubitus ulcer. She is status post debridement of that ulcer done by Dr. Jeter. The patient also has an oral candidiasis. MEDICATIONS: She is receiving meropenem 1 g IV every 8 hours. PHYSICAL EXAMINATION: Vital Signs: Temperature 97.3 degrees, pulse rate 100, respiratory rate 20, blood pressure 109/62, O2 saturation 100% on room air. General: This is a chronically ill- appearing, middle-aged female. She is lying in bed, currently in no acute distress. HEENT: Atraumatic, normocephalic. Oral mucous membranes are erythematous with some mild white patches forming to the back of her tongue. Conjunctivae are pink. Neck: Supple. Trachea midline. Cardiovascular: Heart rate and rhythm are regular. Normal sinus rhythm on the monitor. Respiratory: Lung sounds are clear to auscultation bilaterally. Abdomen: Soft, round and nontender. Bowel sounds are active. There is a dressing in place to the sacral area. Neurologic: She is awake, alert, and oriented. Able to move all her extremities in the bed with generalized weakness. LABORATORY AND X-RAY: Today, her white count is 6.19, hemoglobin 10.5, platelet count 272,000. Creatinine is 0.4, estimated GFR is greater than 60. Total bilirubin is 0.31. AST 19, ALT 21, alkaline phosphatase 97. Her sacral decubitus ulcer grew an Enterobacter aerogenes and her urine has grown an ESBL producing E. coli. No imaging reports today. ASSESSMENT AND PLAN: Ms. Manrique is being treated for UTI and sacral decubitus ulcer, using meropenem, which we will continue. She also has an oral candidiasis noted today, so we will start her on nystatin swish and swallow. These plans have been discussed with and recommended by Dr. Zambrano. COMORBIDITIES: for Ms. Manrique include deep vein thrombosis with pulmonary embolism, cigarette smoking, bipolar depression and gastroesophageal reflux disease. Dictated by MELISA Ma for Will Zambrano MD cc: Will Zambrano MD [facility]
[2018-10-10] MEDS: ZOFRAN IV PRN ×2 (11:31→21:13)
[2018-10-10] MEDS: SANTYL OINT TOP SCH (11:31)
[2018-10-10] MEDS: MYCOSTATIN POWDER TOP SCH ×2 (11:32→21:12)
--- NOTE | 2018-10-10 11:37 | PROGRESS NOTE ---
DATE: 10/10/2018 SUBJECTIVE: The patient resting comfortable in bed. Not in any distress. OBJECTIVE: Vital signs: Temperature is 97.3 degrees, pulse is 100, respiratory rate 20 Oxygenation is 98%. HEENT: Atraumatic, normocephalic. Cardiovascular: S1, S2. Respiratory: Good entry bilaterally. Abdomen: Soft, nontender. No masses felt. Extremities: No evidence of edema. Skin: Decubitus ulcer on the left gluteal and region noted. Base of ulcer pinkish. LABORATORY DATA: WBC 6.19, hematocrit is 31.8 with a platelet count of 272,000. Sodium is 142, potassium 3.5, chloride is 114. Bicarb is 22, BUN is 6, creatinine 0.4. ASSESSMENT AND PLAN: 1. Urinary tract infection secondary to extended spectrum beta lactamase Escherichia coli. Continue antibiotic regimen. 2. Colitis. Etiology ischemic versus infectious. GI team is following. 3. Rectal bleed. Resolved. 4. Infected sacral decubitus ulcer. Continue antibiotics as well as local wound care. 5. Hypothyroidism. Continue levothyroxine. 6. History of deep venous thrombosis as well as a pulmonary embolism. Continue heparin infusion with plans of transition to Eliquis post endoscopy. 7. Situational depression. Continue current antidepressant. 8. Deep vein thrombosis prophylaxis. The patient is on heparin. 9. Disposition. The patient indicates she would like to be discharged home when ready for discharge and she indicates that she does have good social support. We will plan for discharge home when okay with the Infectious Disease team. cc: Lucas Cabrera MD MTDD
[2018-10-10] MEDS: MYCOSTATIN SUSP PO SCH ×3 (14:55→21:13)
[2018-10-10] MEDS ORDERED: HEPARIN 25,000 UNIT in NS 250 ML IV SCH (18:00)
--- NOTE | 2018-10-10 23:42 | PROVIDER PROGRESS NOTE ---
Progress Note SUBJECTIVE: No acute overnight events. Patient reports nausea and vomiting without hematemesis secondary to buttock pain. She denies abdominal pain and diarrhea. She had normal soft bowel movement yesterday. OBJECTIVE: Last Vital Signs Temp 98.4 F 10/10/18 23:14 Pulse 101 H 10/10/18 23:14 Resp 15 10/10/18 23:14 BP 105/79 10/10/18 23:14 Pulse Ox 96 10/10/18 23:14 Height 5 ft 4 in Weight 133 lb 9 oz GEN: awake, alert, NAD HEENT: anicteric, MMM NECK: supple, no jvd PULM: CTAB, no wheezing CV: RRR, no murmurs ABD: soft NT/ND, NABS, no rebound or guarding EXT: WWP, bruising, no cce NEURO: nonfocal LABS: 10/10/18 10/10/18 05:55 05:55 WBC 6.19 Hgb 10.5 L Plt Count 272 Sodium 142 Potassium 3.5 Chloride 114 H Carbon Dioxide 22 L BUN 6 L Creatinine 0.4 L Glucose 79 Total Bilirubin 0.31 AST 19 ALT 21 Alkaline Phosphatase 97 Total Protein 3.5 L Albumin 1.8 L A/P: Ms. Rebekah Manrique is a 63 year old woman with COPD, BPD, GERD, h/o CDI, h/o DVT/PE, RYGB, chronic iron deficiency anemia, and tobacco abuse who presented with sepsis found to have diffuse colitis, infected sacral decubitus ulcer growing Enterobacter, and E coli UTI. She is POD#2 after sacral wound debridement. Colitis likely 2/2 to ischemic in the setting of hypotension vs infectious. Stool studies negative. Leukocytosis and lactate resolved. Diarrhea resolved. #Colitis: improving; no rectal bleeding; VSS, leukocytosis resolved; on abx per ID - avoid hypotension, constipation, NSAIDs - smoking cessation - repeat CT to assess for resolution in 6 weeks - at this point, sigmoidoscopy would be low yield given her clinical improvement recent partial colonoscopy in 04/2018 #Rectal bleeding: resolved; hgb stable #Infected decubitus sacral ulcer: s/p debridement; on abx per ID; wound RN; surgery following #UTI: on abx #N/V: antiemetics prn, pain control #Hypokalemia: replete lytes prn #Severe protein calorie malnutrition: nutrition following; appreciate recs #COPD: stable #Elevated LFTs: 2/2 to fatty liver; hep panel negative; improved #GERD: cont PPI PO once daily Will follow with you
[2018-10-11] MEDS: MERREM 1 GM in NS 50 ML IV SCH ×3 (05:08→20:18)
[2018-10-11] MEDS: SYNTHROID PO SCH (06:17)
[2018-10-11] MEDS: PROTONIX PO SCH (06:18)
[2018-10-11] MEDS: NORCO-10 PO PRN ×4 (06:18→20:18)
[2018-10-11] MEDS: VIIBRYD PO SCH (08:42)
[2018-10-11] MEDS: BUSPAR PO SCH ×3 (08:42→20:18)
[2018-10-11] MEDS: CREON PO SCH ×3 (08:42→17:20)
[2018-10-11] MEDS: CULTURELLE PO SCH ×2 (08:42→20:18)
[2018-10-11] MEDS: CENTRUM SILVER PO SCH (08:42)
[2018-10-11] MEDS: NEURONTIN PO SCH ×3 (08:42→20:18)
[2018-10-11] MEDS: PERIDEX MT SCH ×2 (08:42→20:18)
[2018-10-11] MEDS: ICAR-C PO SCH ×2 (08:43→20:18)
[2018-10-11] MEDS: NICODERM PATCH TD SCH (08:43)
[2018-10-11] MEDS: MIRALAX PO SCH (08:43)
[2018-10-11] MEDS: MYCOSTATIN SUSP PO SCH ×4 (08:43→20:18)
[2018-10-11] MEDS: MYCOSTATIN POWDER TOP SCH (09:19)
[2018-10-11] MEDS: SANTYL OINT TOP SCH (09:19)
[2018-10-11] MEDS: ZOFRAN IV PRN ×2 (09:19→17:19)
--- NOTE | 2018-10-11 12:56 | GASTROENTEROLOGY PROGRESS NOTE ---
DATE: 10/11/2018 SUBJECTIVE: She resting in bed. She is feeling better. She is eating better. She denies any fevers, rigors, or chills. She is moving her bowels. She is tolerating diet well. OBJECTIVE: Vital signs: Temperature 97.8 degrees, pulse rate of 80, respiratory rate 20, blood pressure 125/58, saturating on room air. General Appearance: The patient is moderately built and nourished, lying in bed, in no acute distress. HEENT: Pale conjunctivae. No icterus. Pupils equal, react to light. Neck: Supple. Abdomen: Discomfort in the periumbilical region. No rebound. No guarding. Extremities: No cyanosis, clubbing. Neurological: Alert, awake, oriented x3. DIAGNOSTIC STUDIES: Her PTT was 122.7 today. She is on heparin drip. Blood glucose of 76. No other laboratories were drawn today. Her albumin yesterday was 1.8. Stool culture shows negative growth. Wound culture showing Enterobacter aerogenes. Urine culture showing E. coli. IMPRESSION AND PLAN: 1. Colitis is improving. She is moving her bowels. She is eating better. At some point we will do a flexible sigmoidoscopy once she heals from recent surgery on her sacral decubitus ulcer. 2. Rectal bleeding, which resolved. 3. Anemia. Hemoglobin is stable. Continue to watch for now. 4. Chronic constipation. We will keep her on bowel regimen. 5. Chronic smoker. Patient counseled to quit smoking. 6. Chronic obstructive pulmonary disease, stable. 7. Protein-calorie malnutrition. She continues to eat better. We will keep her on protein shakes like Glucerna, to help improve her nutrition. 8. Anemia. Continue iron C b.i.d. and multivitamin once daily. 9. Hypothyroidism. She is on levothyroxine. 10. Elevated liver function tests secondary to fatty liver. Hepatitis panel negative. Continue watch for now. 11. Urinary tract infection. She is on antibiotics. 12. Infected sacral decubitus ulcer. Has had debridement by Dr. Jeter. She is on antibiotics per Infectious Disease team. 13. History of bilateral deep vein thromboses and pulmonary embolism. She is on a heparin drip. This is being managed by the primary team. 14. Extremely severe atrophy of the pancreas noted on the imaging and CT scan. We will continue her on Creon 3 times a day with meals. Hopefully, that will help her digestion. The above plans were discussed with the patient, and all questions were answered. Please call us with any further questions. cc: MD Jayden Ohara MD MTDD
--- NOTE | 2018-10-11 13:22 | INFECTIOUS DISEASE PROGRESS NO ---
DATE: 10/11/2018 PRESENT ILLNESS: The patient has an extended spectrum beta lactamase producing E. coli urinary tract infection and an Enterobacter infected sacral decubitus. She has had debridement of her wound by Dr. Jeter. The patient also has oral candidiasis. MEDICATIONS: The patient is receiving meropenem 1 g IV every 8 hours. This is the 4th day of treatment. The patient also is receiving nystatin swish and swallow for her oral candidiasis. PHYSICAL EXAMINATION: Vital Signs: Temperature is 97.8 degrees, pulse 88, respirations 20, blood pressure 124/58. General: This is a chronically ill-appearing, middle-aged female. She is in no acute distress. Head, Eyes, Ears, Nose, and Throat: She can hear my spoken words and see near objects. She does not have any white coating of her tongue. Neck: She does not have any pain when she moves her neck. Lungs: Clear to auscultation. Cardiovascular: Regular heart rate. Abdomen: Soft and nontender. I removed the patient's dressing from her sacral wound and the wound looks very clean. There is no erythema. There is no purulence and there is no surrounding erythema. Neurologic: The patient is alert. She can move her extremities. There is no tremor. LAB AND X-RAY: There is no new lab or radiographic studies for today. ASSESSMENT AND PLAN: The patient is being treated for a urinary tract infection and sacral decubitus ulcer infection with meropenem, and oral candidiasis with nystatin swish and swallow. COMORBIDITIES: The patient has a deep venous thrombosis with pulmonary embolism. She also is a cigarette smoker, and she has depression and gastroesophageal reflux disease. cc: Will Zambrano MD
[2018-10-11] MEDS: HEPARIN 25,000 UNIT in NS 250 ML IV SCH (13:42)
--- NOTE | 2018-10-11 17:23 | PROGRESS NOTE ---
DATE: 10/11/2018 SUBJECTIVE: Patient is resting comfortable in bed. Not in any obvious distress. OBJECTIVE: Vital signs: Temperature 98.1 degrees, pulse 97, respiratory rate 20, blood pressure is 135/78, oxygen saturation is 98%. HEENT: Atraumatic, normocephalic. Cardiovascular System: S1, S2. Respiratory system has evidence of good air entry bilaterally. Abdomen is soft, nontender. No masses felt. Extremities: No evidence of edema. Central Nervous System: No obvious focal deficit noted. LABORATORIES: Blood glucose is 80. ASSESSMENT AND PLAN: 1. Urinary tract infection secondary to extended-spectrum beta-lactamase Escherichia coli. Continue antibiotic regimen. ID following. 2. Infected sacral decubitus ulcer. Continue antibiotic management as well as local wound care. 3. Rectal bleed, resolved. 4. Hypothyroidism. Continue levothyroxine. 5. History of deep venous thrombosis as well as a pulmonary embolism. Continue anticoagulation. 6. Situational depression. Continue antidepressant. DISPOSITION: The patient's preference is to be discharged home, where she indicates that she does have good social support, but it seems that the patient's family would like to be discharged to a shelter facility. The patient can be discharged when cleared by the Infectious Disease team. cc: Lucas Cabrera MD MTDD
[2018-10-12] MEDS: MYCOSTATIN POWDER TOP SCH (04:01)
[2018-10-12] MEDS: NORCO-10 PO PRN ×5 (04:44→23:18)
[2018-10-12] MEDS: HEPARIN 25,000 UNIT in NS 250 ML IV SCH (05:13)
[2018-10-12] MEDS: ZOFRAN IV PRN ×3 (05:47→22:58)
[2018-10-12] MEDS: SYNTHROID PO SCH ×2 (05:47→20:05)
[2018-10-12] MEDS: MERREM 1 GM in NS 50 ML IV SCH ×3 (05:47→22:57)
[2018-10-12] MEDS: PROTONIX PO SCH ×2 (05:47→20:04)
[2018-10-12] MEDS: PHENERGAN IV PRN ×3 (09:28→22:58)
[2018-10-12] MEDS: ICAR-C PO SCH ×2 (10:07→22:58)
[2018-10-12] MEDS: BUSPAR PO SCH ×3 (10:07→22:58)
[2018-10-12] MEDS: CULTURELLE PO SCH ×2 (10:07→22:58)
[2018-10-12] MEDS: NEURONTIN PO SCH ×3 (10:07→23:00)
[2018-10-12] MEDS: CENTRUM SILVER PO SCH (10:07)
--- NOTE | 2018-10-12 10:07 | PROVIDER PROGRESS NOTE ---
Progress Note SUBJECTIVE: No acute overnight events. Afebrile. No CP, SOB. She reports some abdominal tenderness, nausea, and vomiting. She complains of sacral pain at surgical site. No rectal bleeding. One liquid stool yesterday and today. OBJECTIVE: Last Vital Signs Temp 98.0 F 10/12/18 07:41 Pulse 98 H 10/12/18 07:41 Resp 18 10/12/18 07:41 BP 131/70 10/12/18 07:41 Pulse Ox 100 10/12/18 07:41 Height 5 ft 4 in Weight 130 lb 6 oz GEN: awake, alert, NAD HEENT: anicteric, MMM NECK: supple, no jvd PULM: CTAB, no wheezing CV: RRR, no murmurs ABD: soft, moderate TTP throughout, NABS, no rebound or guarding EXT: WWP, bruising, no cce NEURO: nonfocal LABS: none today A/P: Ms. Rebekah Manrique is a 63 year old woman with COPD, BPD, GERD, h/o CDI, h/o DVT/PE, RYGB, chronic iron deficiency anemia, and tobacco abuse who presented with sepsis found to have diffuse colitis, infected sacral decubitus ulcer growing Enterobacter, and E coli UTI. She had sacral wound debridement. Colitis likely 2/2 to ischemic in the setting of hypotension vs infectious. Stool studies negative. Leukocytosis and lactate resolved. Diarrhea improving. She is having nausea and vomiting. #Colitis: no rectal bleeding; VSS, leukocytosis resolved; on abx per ID - avoid hypotension, constipation, NSAIDs - smoking cessation - repeat CT to assess for resolution in 6 weeks - she may need sigmoidoscopy if she continues to have abdominal apin #N/V: continue zofran 4mg q4h prn, start phenergan 12.5mg q6h prn, alternate between the two #Rectal bleeding: resolved; hgb stable #Infected decubitus sacral ulcer: s/p debridement; on abx per ID; wound RN; surgery following #UTI: on abx #Severe protein calorie malnutrition: nutrition following; appreciate recs #COPD: stable #Elevated LFTs: 2/2 to fatty liver; hep panel negative; improved #GERD: cont PPI PO once daily Will follow with you
[2018-10-12] MEDS: NICODERM PATCH TD SCH (10:08)
[2018-10-12] MEDS: VIIBRYD PO SCH (10:08)
[2018-10-12] MEDS: PERIDEX MT SCH ×2 (10:10→22:58)
[2018-10-12] MEDS: MYCOSTATIN SUSP PO SCH ×4 (10:11→23:00)
[2018-10-12] MEDS: CREON PO SCH ×2 (11:53→16:22)
--- NOTE | 2018-10-12 11:56 | PROGRESS NOTE ---
DATE: 10/12/2018 SUBJECTIVE: The patient is resting comfortably in bed. OBJECTIVE: Vital signs: Temperature is 98 degrees, pulse is 90, respiratory rate 18, blood pressure 131/70, oxygen 100%. HEENT: Atraumatic, normocephalic. Cardiovascular: S1, S2. Respiratory: Has evidence of good air entry bilaterally. Abdomen: Soft, nontender. No masses felt. Extremities: No evidence of edema. Central nervous system: No obvious focal deficits noted. LABORATORY DATA: Blood glucose is 86. ASSESSMENT AND PLAN: 1. Urinary tract infection secondary to extended spectrum beta lactamase Escherichia coli. Continue current antibiotic regimen. 2. Infected sacral decubitus ulcer. Continue antibiotic regimen as well as local wound care. 3. Rectal bleed. Resolved. 4. Hypothyroidism. Continue levothyroxine. 5. History of deep venous thrombosis as well as pulmonary embolus. We will discontinue heparin infusion and maintain the patient on oral anticoagulation. 6. Situational depression. Continue antidepressant. DISPOSITION: The patient's preference is to be discharged home, however, family wants the patient to be discharged to a [place] [facility] facility. cc: Lucas Cabrera MD
[2018-10-12] MEDS: SANTYL OINT TOP SCH (12:33)
[2018-10-12] MEDS: MIRALAX PO SCH (18:39)
[2018-10-12] MEDS: ELIQUIS PO SCH (22:58)
[2018-10-13] MEDS: PROTONIX PO SCH ×2 (03:34→20:14)
[2018-10-13] MEDS: SYNTHROID PO SCH ×2 (03:34→20:14)
[2018-10-13] MEDS: MERREM 1 GM in NS 50 ML IV SCH ×4 (03:34→22:04)
[2018-10-13] MEDS: NORCO-10 PO PRN ×5 (03:45→22:04)
--- NOTE | 2018-10-13 08:57 | INFECTIOUS DISEASE PROGRESS NO ---
DATE: 10/13/2018 PRESENT ILLNESS: The patient has the following infections. 1. Extended spectrum beta lactamase producing Escherichia coli urinary tract infection. 2. Enterobacter infected sacral decubitus ulcer . 3. Oral candidiasis. MEDICATIONS: The patient is on the following medications: Meropenem for the patient's E coli and Enterobacter infections/ and Mycostatin swish and swallow for oral candidiasis. This is day 6 of treatment with the agents. PHYSICAL EXAMINATION: Vital Signs: Temperature is 97.6 degrees, pulse 91, respirations 12, blood pressure is 133/71. General: This is a chronically ill-appearing, middle-aged female. She is in no acute distress. Head, eyes, ears, nose, and throat: She can hear my spoken words and see near objects. She does not have any white patches on her tongue. Neck: She moves her neck without pain. Lungs: Clear to auscultation. Cardiovascular: Heart rate is regular. Abdomen: Soft and nontender. I removed the dressing from the patient's sacral wound. The wound still looks very clean. I did not see any necrosis or purulence. There was no surrounding erythema either. Neurologic: The patient is awake. She can move her extremities. There is no tremor. LAB AND X-RAY: There is no new lab or x-ray for today. I am going to order a CBC and BMP. ASSESSMENT AND PLAN: I plan on continuing meropenem for the urinary tract infection and sacral decubitus ulcer infection, and also I plan to continue oral IV and also I plan to continue treatment with nystatin swish and swallow for the patient's oral candidiasis. COMORBIDITIES: The patient has had a deep venous thrombosis with pulmonary embolism. She also is a cigarette patient and she also has depression and gastroesophageal reflux disease. cc: Will Zambrano MD [facility]
[2018-10-13] MEDS: PHENERGAN IV PRN ×3 (09:27→22:06)
[2018-10-13] MEDS: NICODERM PATCH TD SCH (09:30)
[2018-10-13] MEDS: CULTURELLE PO SCH ×2 (11:56→22:12)
[2018-10-13] MEDS: ELIQUIS PO SCH ×2 (11:57→22:11)
[2018-10-13] MEDS: NEURONTIN PO SCH ×3 (11:57→22:12)
[2018-10-13] MEDS: VIIBRYD PO SCH (11:57)
[2018-10-13] MEDS: CREON PO SCH ×2 (11:57→16:02)
[2018-10-13] MEDS: CENTRUM SILVER PO SCH (11:57)
[2018-10-13] MEDS: MYCOSTATIN SUSP PO SCH ×3 (11:57→22:11)
[2018-10-13] MEDS: PERIDEX MT SCH ×2 (11:57→22:12)
[2018-10-13] MEDS: ICAR-C PO SCH ×2 (11:57→22:11)
[2018-10-13] MEDS: BUSPAR PO SCH ×3 (12:04→22:12)
[2018-10-13] MEDS: ZOFRAN IV PRN ×2 (13:29→20:25)
[2018-10-13] MEDS: MIRALAX PO SCH (14:33)
--- NOTE | 2018-10-13 15:52 | PROGRESS NOTE ---
DATE: 10/13/2018 SUBJECTIVE: This morning Ms. Manrique refers to be doing fairly okay. She said she still has some abdominal discomfort and vomiting especially anytime she eats. There was a container right on top of her with recent emesis. OBJECTIVE: Vital signs: Blood pressure is 114/65, pulse of 95, respirations 12, temperature 98.7 degrees. General: Ms. Carpenter is a 63-year-old, female. She is in bed, not seemingly distressed, HEENT: Mucosa is pink and moist. Anicteric. Acyanotic. Neck: Supple. Chest: Air entry is bilaterally reduced. A few crackles in the posterior lung reece. Cardiovascular: Regular rate and rhythm. Abdomen: Soft. Minimally tender but no rebound or guarding. There seems to be hernia defect on the right upper quadrant where a surgical scar is. Extremities: There is trace pedal edema. Back: I did not review the sacral wound. LABORATORY DATA: No labs for today. REVIEW OF IMAGING STUDIES: A CT chest, abdomen, and pelvis does show diffuse colitis, severe fatty liver disease, mild rectal stool impaction. Patient I's and O's, bowel movements about three documented today. ASSESSMENT: 1. Severe diffuse colitis, questionable for ischemic colitis. Gastroenterology is on board. 2. Enterobacter aerogenes infected decubital ulcer. The patient is status post incision and drainage by Dr. Jeter. We will continue recommendations from them. 3. Extended spectrum beta lactamase Escherichia coli urinary tract infection the patient is on meropenem. Infectious Disease is on board. 4. Pancreatic insufficiency. The patient is on Creon. 5. Hypothyroidism. 6. History of deep venous thrombosis as well as pulmonary emboli. Patient is on anticoagulation. 7. Situational depression. 8. Fecal impaction on initial CT scan. We will continue on bowel regimen, bowel regimen. 9. Protein calorie malnutrition. 10. The patient is being seen by multiple subspecialties including gastroenterology, infectious disease, surgery. Will follow up with further recommendations from all of them. cc: Jesse Sibley MD
[2018-10-13] MEDS: MYCOSTATIN POWDER TOP SCH ×2 (23:05→23:06)
[2018-10-14] MEDS: NORCO-10 PO PRN ×6 (02:16→23:04)
[2018-10-14] MEDS: ZOFRAN IV PRN ×3 (05:56→17:21)
[2018-10-14] MEDS: PROTONIX PO SCH (06:00)
[2018-10-14] MEDS: SYNTHROID PO SCH (06:00)
[2018-10-14 06:38] LABS: BASO# 0.03 X1000 (0.0-0.2); BASO% 0.5 % (0.0-0.8); EOS# 0.11 X1000 (0.0-0.7); HEMATOCRIT 32.7 % (37.0-47.0); HEMOGLOBIN 10.7 g/dL (12.0-16.0); IMM GRAN# 0.02 X1000 (0.0-0.04); IMM GRAN% 0.4 % (0.0-0.5); LYMPH# 2.55 X1000 (1.2-3.4); LYMPH% 45.8 % (20.5-51.1); MCH 31.8 PG (27-31); MCHC 32.7 g/dL (33-37); MCV 97.3 FL (81-99); MONO# 0.44 X1000 (0.11-0.59); MONO% 7.9 % (1.7-9.3); MPV 9.2 FL (7.4-10.4); NEUT# 2.42 X1000 (1.4-6.5); NEUT% 43.4 % (42.2-75.2); PLT 243 X1000 (130-400); RBC 3.36 XMIL (4.2-5.4); WBC 5.57 X1000 (4.8-10.8)
[2018-10-14 07:22] LABS: AGAP 7; ALB/GLOB RATIO 1.1; ALBUMIN 1.8 g/dL (3.5-5.0); ALKALINE PHOSPHATASE 98 U/L (32-104); BUN 8 mg/dL (8-22); CALCIUM 8.3 mg/dL (8.8-10.2); CHLORIDE 111 mmol/L (98-107); COSMO 281; CREATININE 0.5 mg/dL (0.5-0.9); ESTIMATED GFR > 60; GLUCOSE 131 mg/dL (70-104); GOT 23 U/L (10-30); GPT 20 U/L (10-36); MAGNESIUM 1.9 mg/dL (1.5-2.7); PHOSPHORUS 2.1 mg/dL (2.7-4.5); POTASSIUM 3.9 mmol/L (3.5-5.1); SODIUM 141 mmol/L (136-145); TCO2 23 mmol/L (25-35); TOTAL PROTEIN 3.5 g/dL (6.3-8.3)
[2018-10-14 07:42] LABS: C REACTIVE PROT QUANT 0.42 mg/L (0.00-5.00)
[2018-10-14] MEDS: PHENERGAN IV PRN ×3 (08:06→18:44)
[2018-10-14] MEDS: VITAMIN D PO SCH (10:04)
[2018-10-14] MEDS: BUSPAR PO SCH ×3 (10:14→23:04)
[2018-10-14] MEDS: CREON PO SCH ×5 (10:14→18:09)
[2018-10-14] MEDS: NEURONTIN PO SCH ×3 (10:15→23:04)
[2018-10-14] MEDS: CULTURELLE PO SCH ×2 (10:15→23:04)
[2018-10-14] MEDS: CENTRUM SILVER PO SCH (10:15)
[2018-10-14] MEDS: VIIBRYD PO SCH (10:15)
[2018-10-14] MEDS: ICAR-C PO SCH ×2 (10:15→23:04)
[2018-10-14] MEDS: NICODERM PATCH TD SCH (10:16)
[2018-10-14] MEDS: MYCOSTATIN SUSP PO SCH ×5 (10:16→23:04)
[2018-10-14] MEDS: PERIDEX MT SCH ×2 (10:19→23:51)
--- NOTE | 2018-10-14 11:23 | INFECTIOUS DISEASE PROGRESS NO ---
DATE: 10/14/2018 PRESENT ILLNESS: The patient has an extended-spectrum beta lactamase-producing Escherichia coli urinary tract infection, an Enterobacter infected sacral decubitus ulcer, oral candidiasis, and colitis, for which GI is seeing the patient. MEDICATIONS: The patient is on meropenem for her urinary tract infection and her infected decubitus ulcer. It also may be helping the patient's colitis. The patient is on Mycostatin for her oral candidiasis. This is day 7 of treatment with meropenem and Mycostatin. PHYSICAL EXAMINATION: Vital Signs: Temperature is 97.5 degrees, pulse 88, respirations 18, blood pressure 111/58. General: This is a chronically ill-appearing middle-aged female. She is in no acute distress. HEENT: She can hear my spoken words and see near objects. She does not have any white coating to her tongue. There is no drainage from her nose or ears. Neck: There is no pain when she moves her head. Lungs: Clear to auscultation. Cardiovascular: Heart rate is regular. Abdomen: Soft and nontender. Pelvic: I did not remove the patient's dressing of her sacral wound infection. Neurologic: The patient is awake. She can move her extremities. She does not have any tremor. LABORATORY DATA: CBC shows a white blood cell count of 5570, hemoglobin is 10.7, and platelet count is 243,000. Creatinine is 0.5. GFR is greater than 60. Liver function studies are normal. ASSESSMENT AND PLAN: I plan to continue meropenem for the urinary tract infection and the infected sacral decubitus ulcer. To some extent, it may be helping the patient's colitis also. I will plan to continue Mycostatin swish and swallow for the patient's oral candidiasis. COMORBIDITIES: The patient has previously had a deep venous thrombosis, along with pulmonary embolism. The patient is a cigarette smoker, and she also has gastroesophageal reflux disease. cc: Will Zambrano MD
--- NOTE | 2018-10-14 14:02 | PROGRESS NOTE ---
DATE: 10/14/2018 SUBJECTIVE: The patient is resting in bed. Not in any obvious distress. OBJECTIVE: Vital Signs: Temperature 98.4 degrees, pulse 88, respiratory rate 16, blood pressure 124/60, oxygen saturation is 99%. HEENT: Atraumatic, normocephalic. Cardiovascular System: S1, S2. Respiratory System: Has evidence of good entry bilaterally. Abdomen: Soft, nontender. No masses felt. Extremities: No evidence of edema. Central Nervous System: No obvious focal deficit noted. Labs: WBC is 5.57, hematocrit is 32.7, platelet count of 243,000. Sodium is 141, potassium 3.9, chloride is 111, bicarb 23, BUN is 8, creatinine 0.5. ASSESSMENT AND PLAN: 1. Urinary tract infection secondary to extended spectrum beta lactamase Escherichia coli/infected sacral decubitus ulcer. Antibiotic management per the infectious disease team. Continue local wound care for the infected sacral decubitus ulcer. 2. Rectal bleed, resolved. 3. Hypothyroidism. Continue levothyroxine. 4. Deep venous thrombosis/pulmonary embolism. Continue anticoagulation. 5. Situational depression. Continue antidepressant. 6. Disposition. Plan is for the patient to be discharged to a retirement facility. cc: Lucas Cabrera MD MTDD
[2018-10-14] MEDS: SANTYL OINT TOP SCH (14:03)
[2018-10-14] MEDS: ELIQUIS PO SCH ×2 (14:04→23:04)
[2018-10-14] MEDS: MERREM 1 GM in NS 50 ML IV SCH ×3 (14:23→23:51)
[2018-10-14] MEDS: MIRALAX PO SCH (15:56)
[2018-10-14] MEDS: MYCOSTATIN POWDER TOP SCH (23:53)
[2018-10-15] MEDS: NORCO-10 PO PRN ×4 (04:39→20:55)
[2018-10-15] MEDS: SYNTHROID PO SCH (06:09)
[2018-10-15] MEDS: PROTONIX PO SCH (06:09)
[2018-10-15] MEDS: ZOFRAN IV PRN ×2 (06:43→17:41)
[2018-10-15 06:52] LABS: BASO# 0.04 X1000 (0.0-0.2); BASO% 0.8 % (0.0-0.8); EOS# 0.09 X1000 (0.0-0.7); EOS% 1.9 % (0.0-10.0); HEMATOCRIT 33.9 % (37.0-47.0); HEMOGLOBIN 11.2 g/dL (12.0-16.0); LYMPH# 2.24 X1000 (1.2-3.4); LYMPH% 47.6 % (20.5-51.1); MCH 32.6 PG (27-31); MCV 98.5 FL (81-99); MONO# 0.36 X1000 (0.11-0.59); MONO% 7.6 % (1.7-9.3); MPV 9.3 FL (7.4-10.4); NEUT# 1.98 X1000 (1.4-6.5); NEUT% 42.1 % (42.2-75.2); PLT 267 X1000 (130-400); RBC 3.44 XMIL (4.2-5.4); RDW 19.2 % (11.5-14.5); WBC 4.71 X1000 (4.8-10.8)
[2018-10-15 07:18] LABS: AGAP 3; BUN 7 mg/dL (8-22); CALCIUM 8.3 mg/dL (8.8-10.2); CHLORIDE 112 mmol/L (98-107); COSMO 281; CREATININE 0.5 mg/dL (0.5-0.9); ESTIMATED GFR > 60; GLUCOSE 72 mg/dL (70-104); POTASSIUM 4.3 mmol/L (3.5-5.1); SODIUM 143 mmol/L (136-145); TCO2 28 mmol/L (25-35)
[2018-10-15] MEDS: PHENERGAN IV PRN ×2 (07:57→21:56)
[2018-10-15] MEDS: MERREM 1 GM in NS 50 ML IV SCH ×2 (08:03→17:30)
[2018-10-15] MEDS: CREON PO SCH ×3 (08:03→17:28)
[2018-10-15] MEDS: MIRALAX PO SCH ×2 (08:03→11:57)
[2018-10-15] MEDS: CENTRUM SILVER PO SCH (08:04)
[2018-10-15] MEDS: NEURONTIN PO SCH ×3 (08:04→20:55)
[2018-10-15] MEDS: BUSPAR PO SCH ×3 (08:04→20:51)
[2018-10-15] MEDS: ELIQUIS PO SCH ×2 (08:04→20:51)
[2018-10-15] MEDS: CULTURELLE PO SCH ×2 (08:04→20:51)
[2018-10-15] MEDS: PERIDEX MT SCH ×2 (08:04→20:51)
[2018-10-15] MEDS: ICAR-C PO SCH ×2 (08:04→20:51)
[2018-10-15] MEDS: NICODERM PATCH TD SCH (08:05)
[2018-10-15] MEDS: MYCOSTATIN SUSP PO SCH ×3 (08:05→20:51)
[2018-10-15] MEDS: VIIBRYD PO SCH (12:00)
--- NOTE | 2018-10-15 12:41 | GASTROENTEROLOGY PROGRESS NOTE ---
DATE: 10/15/2018 SUBJECTIVE: Patient resting in bed. She is complaining of nausea and vomiting. She has thrown up multiple times today and vomitus was yellowish-green in nature. She denies any vomiting blood. Her last EGD was done in 2018. At that time, she was noted to have changes of gastroplasty, but no ulcers noted. OBJECTIVE: Vital signs: Temperature 98.3 degrees, pulse rate of 94, respiratory rate 14, blood pressure 139/62, saturating 98% on room air. General Appearance: Moderately built, moderately nourished, lying in bed, in no acute distress. HEENT: Pale conjunctivae. No icterus. Neck: Supple. Abdomen: Soft, mild discomfort in the epigastric region. No rebound or guarding. Extremities: No cyanosis, clubbing. Neurologic: Alert, awake, oriented. LABORATORIES: Hemoglobin and hematocrit 11.2 and 33.9, white count of 4.1, platelet count of 257,000. Sodium 143, potassium 4.3, chloride 112, bicarb 20, anion gap 3. BUN of 7, creatinine 0.5, glucose of 92, calcium is 8.3, phosphorus 2.1, magnesium 1.9. Total bilirubin 0.2. AST 23, ALT 20, alkaline phosphatase 98, total protein is 3.5. Albumin 1.8. CRP 0.42. Total lactate of 2.7. IMPRESSION/PLAN: 1. Nausea, vomiting, epigastric pain in the setting of history of gastric bypass surgery. We will schedule for EGD tomorrow by Dr. Alvarenga. Keep her on IV fluids and IV antiemetics. I will switch her to a full liquid diet. 2. Gastrointestinal prophylaxis with Protonix once daily. We will start on Carafate 1 g every 6 hours for bilious vomiting. 3. Constipation. She had moved her bowels today. We will keep her on bowel regimen with MiraLAX once daily. 4. Pancreatic atrophy on imaging. She will continue on Creon 12,000 units p.o. t.i.d. with meals. 5. Anemia. We will continue Iron C b.i.d. and multivitamin once daily. 6. Chronic smoker. Patient will continue on NicoDerm patch. 7. Urinary tract infection secondary to extended spectrum beta lactamase E. Coli and infected sacral decubitus ulcer. She is on antibiotics per Infectious Disease Team. Rectal bleeding is resolved. 8. History of DVT and PE. She was started on Eliquis. We will have to hold Eliquis for EGD tomorrow. 9. Depression. She will continue on antidepressants per the Primary Care Team. 10. Hypothyroidism. She is on levothyroxine. The above plan was discussed with the patient and all questions answered. Please call with any further questions. cc: MD Lucas Ohara MD Alan Walker, MD
--- NOTE | 2018-10-15 14:37 | INFECTIOUS DISEASE PROGRESS NO ---
DATE: 10/15/2018 PRESENT ILLNESS: Patient has an extended spectrum beta lactamase producing E coli urinary tract infection and an Enterobacter infected sacral decubitus ulcer. She also has oral candidiasis and colitis for which GI is seeing the patient. MEDICATIONS: The patient is on meropenem for urinary tract infection and her infected decubitus ulcer. It may be helping the patient's colitis as well. Mycostatin is treating the patient's oral candidiasis. The patient has had 8 days of treatment now with meropenem and Mycostatin. PHYSICAL EXAMINATION: Vital Signs: Temperature is 98.3, pulse is 94, respirations 14, blood pressure 139/66. General: This is a chronically ill-appearing middle-aged female. She is in no acute distress. Head, Eyes, Ears, Nose and Throat: She can hear my spoken words and see near objects. She does not have any white coating on her tongue. Neck: She does not have any pain when she moves her neck. Lungs: Clear to auscultation. Cardiovascular: Heart rate is regular. Abdomen: Soft and nontender. Pelvic: I removed the patient's dressing from her sacral wound and it looks much industrial sweeper cleaner. There is no erythema, no purulence and no necrosis. Neurologic: The patient is awake. She can move her extremities. She does not have a tremor. LABORATORY AND X-RAY: CBC shows a white count of 4710, hemoglobin 11.2 and platelet count 267,000. Creatinine 0.5. GFR is greater than 60. ASSESSMENT AND PLAN: The patient as mentioned above is being treated with meropenem for her urinary tract infection and her infected sacral decubitus ulcer and she is receiving Mycostatin swish and swallow for the patient's oral candidiasis. My plan is to treat the patient with meropenem 1 g IV every 12 hours for another week and I wrote in those orders to remove the IV after the last dose of meropenem. Also, the Mycostatin will be continued for 1 more week and stopped after the meropenem is finished. COMORBIDITIES: The patient has a history of deep venous thrombosis with pulmonary embolus. She also smokes cigarettes. She also has gastroesophageal reflux disease. cc: Will Zambrano MD
--- NOTE | 2018-10-15 14:43 | PROGRESS NOTE ---
DATE: 10/15/2018 SUBJECTIVE: The patient is resting comfortably in bed. OBJECTIVE: Vital signs: Temperature is 98.3 degrees, pulse 94, respirations 14, blood pressure is 139/66, oxygen saturation is 99%. HEENT: Atraumatic, normocephalic. Cardiovascular system: S1, S2. Respiratory system: Has evidence of good air entry bilaterally. Abdomen: Soft, nontender. No masses felt. Extremities: No evidence of edema. Central nervous system: No obvious focal deficits noted. LABS: WBC is 4.71, hematocrit is 33.9, with a platelet count of 267,000. Sodium is 143, potassium 4.3, chloride is 112, bicarb 28, BUN is 7, creatinine 0.5. ASSESSMENT AND PLAN: 1. Urinary tract infection secondary to extended spectrum beta lactamase Escherichia coli/infected sacral decubitus ulcer. Continue antibiotics as recommended by Infectious Disease team. Continue local wound care for the infected sacral decubitus ulcer. 2. Nausea, vomiting, as well as abdominal pain. This patient is NPO except for clear liquids. Maintain patient on antiemetics as well as PPI. Check lipase level. GI has EGD planned for 10/16/2018. 3. Rectal bleed, resolved. 4. Hypothyroidism. Continue levothyroxine. 5. Deep venous thrombosis with pulmonary embolism. Continue anticoagulation. 6. Situational depression. Continue antidepressant. 7. Disposition. Plan is for patient to be discharged to a [facility] facility when ready for discharge. cc: Lucas Cabrera MD
[2018-10-15] MEDS: MYCOSTATIN POWDER TOP SCH (17:22)
[2018-10-15] MEDS: SANTYL OINT TOP SCH ×2 (17:29→17:35)
[2018-10-15] MEDS: CARAFATE LIQUID PO SCH ×2 (17:37→20:51)
[2018-10-15] MEDS: SODIUM CHLORIDE 0.9% INJ PRN (21:57)
[2018-10-16] MEDS: CARAFATE LIQUID PO SCH ×3 (01:34→14:08)
[2018-10-16] MEDS: MERREM 1 GM in NS 50 ML IV SCH ×2 (01:34→10:15)
[2018-10-16] MEDS: MYCOSTATIN POWDER TOP SCH ×3 (02:15→10:24)
[2018-10-16] MEDS: SYNTHROID PO SCH (06:10)
[2018-10-16] MEDS: PROTONIX PO SCH (06:10)
[2018-10-16] MEDS ORDERED: DIPRIVAN 1% ONE (09:20)
[2018-10-16] MEDS ORDERED: XYLOCAINE-MPF 2% ONE (09:21)
[2018-10-16] MEDS ORDERED: SODIUM CHLORIDE 0.9% 20 ML ONE (09:35)
[2018-10-16] MEDS ORDERED: NEO-SYNEPHRINE ONE (09:35)
[2018-10-16] MEDS: PHENERGAN IV PRN (10:13)
[2018-10-16] MEDS: MIRALAX PO SCH (10:13)
[2018-10-16] MEDS: VIIBRYD PO SCH (10:14)
[2018-10-16] MEDS: BUSPAR PO SCH ×2 (10:14→16:09)
[2018-10-16] MEDS: NORCO-10 PO PRN ×2 (10:15→14:07)
[2018-10-16] MEDS: CREON PO SCH ×3 (10:15→16:09)
[2018-10-16] MEDS: MYCOSTATIN SUSP PO SCH ×2 (10:15→12:50)
[2018-10-16] MEDS: NEURONTIN PO SCH ×2 (10:15→16:09)
[2018-10-16] MEDS: CULTURELLE PO SCH (10:15)
[2018-10-16] MEDS: NICODERM PATCH TD SCH (10:16)
[2018-10-16] MEDS: PERIDEX MT SCH (10:16)
[2018-10-16] MEDS: ICAR-C PO SCH (10:16)
[2018-10-16] MEDS: CENTRUM SILVER PO SCH (10:16)
[2018-10-16] MEDS: SODIUM CHLORIDE 0.9% INJ PRN (10:16)
[2018-10-16] MEDS: ELIQUIS PO SCH (10:16)
--- NOTE | 2018-10-16 10:25 | OPERATIVE NOTE ---
PROCEDURE DATE: 10/16/2018 PROCEDURE: Upper gastrointestinal endoscopy. PROVIDER: Brennan Alvarenga MD. INDICATIONS: Nausea, vomiting, abdominal pain. MEDICATIONS: Monitored anesthesia care. DESCRIPTION OF PROCEDURE: Prior to procedure, a history and physical was performed. The patient medication allergies were reviewed. The patient's tolerance to previous anesthesia was also reviewed. The risks and benefits of the procedure and sedation, options and risks were discussed with the patient. All questions were answered. Informed consent was obtained. After reviewing the risks and benefits, the patient was deemed in satisfactory condition to undergo the procedure. The endoscope was passed under direct visualization. Throughout the procedure, the patient's blood pressure, pulse and oxygen saturation were monitored continuously. The endoscope was introduced through the mouth and advanced to the afferent digital limb. The upper GI endoscopy was accomplished without difficulty. The patient tolerated the procedure well. COMPLICATIONS: No immediate complications. ESTIMATED BLOOD LOSS: None. FINDINGS: Normal esophagus, normal Mihir-en-Y gastric bypass anatomy, normal jejunal limb and blind pouch. There was no etiology of patient's nausea and vomiting found on upper GI endoscopy. IMPRESSION: Normal Mihir-en-Y gastric bypass anatomy. RECOMMENDATIONS: Resume clear liquid diet and advance as tolerated. Continue antiemetics as needed for nausea and vomiting. We will follow with you. Please call with any questions or concerns.
[2018-10-16 10:35] LABS: URINE SOURCE CATH
[2018-10-16 10:40] LABS: BILIRUBIN URINE NEGATIVE (NEGATIVE); BLOOD URINE LARGE (NEGATIVE); COLOR YELLOW; GLUCOSE URINE NEGATIVE (NEGATIVE); KETONE URINE NEGATIVE (NEGATIVE); LEUKOCYTES URINE NEGATIVE (NEGATIVE); NITRITE URINE NEGATIVE (NEGATIVE); PH URINE 6.5; PROTEIN URINE TRACE mg/dL (NEGATIVE); SP GRAVITY URINE 1.009; TURBIDITY URINE HAZY (CLEAR); UROBILINOGEN URINE NORMAL (NORMAL)
[2018-10-16 10:41] LABS: UR EPITHELIAL CELLS <10 /HPF (<10); URINE BACTERIA NEGATIVE /HPF; URINE RBC TNTC /HPF (<10); URINE WBC <10 /HPF (<10)
--- NOTE | 2018-10-16 11:54 | INFECTIOUS DISEASE PROGRESS NO ---
DATE: 10/16/2018 PRESENT ILLNESS: The patient has an extended spectrum beta lactamase producing E. coli urinary tract infection, an Enterobacter infected sacral decubitus ulcer, oral candidiasis, and colitis as seen on CT scan. MEDICATIONS: The patient has been on meropenem as a single agent. It is treating the patient's urinary tract infection, the infected decubitus ulcer and colitis. The patient's Mycostatin is for treatment of the patient's oral candidiasis. PHYSICAL EXAMINATION: Vital Signs: Temperature is 98.8 degrees, pulse 110, respirations 16, blood pressure 127/64. General: This is a chronically ill-appearing middle-aged female. She is in no acute distress. Head, eyes, ears, nose, and throat: She can hear my spoken words, see near objects. She does not have any white patches on her tongue. Neck: She does not have any pain when she turns her head and moves her neck. Abdomen: Soft and nontender. Pelvic: I did not examine the patient's sacral wound today. Neurologic: The patient is awake. She can move her extremities. She does not have a tremor. LABORATORY AND X-RAY: Patient's urinalysis showed no white cells or bacteria. There was some blood present. There is no more new lab or radiographic study for today. The endoscopy today showed no abnormalities. ASSESSMENT AND PLAN: 1. The plan is to continue for another week meropenem to treat the patient's urinary tract infection, infected sacral decubitus ulcer and the patient's colitis. The patient is also going to be on Mycostatin for another week to treat the oral candidiasis. 2. Comorbidities: The patient has deep venous thrombosis with pulmonary embolus. She is a cigarette smoker. She also has gastroesophageal reflux disease. cc: Will Zambrano MD
[2018-10-16] MEDS: SANTYL OINT TOP SCH (12:50)
[2018-10-16] MEDS: ZOFRAN IV PRN (14:07)
--- NOTE | 2018-10-16 14:40 | PROGRESS NOTE ---
DATE: 10/16/2018 SUBJECTIVE: This morning, Ms. Manrique refers to be doing fairly okay. She still complains of some nauseation. She had an EGD this morning which appears to be normal. OBJECTIVE: Vital Signs: Blood pressure is 125/54, pulse 115, temperature is 99.3 degrees, respiration are 15, patient was saturating 100% on room air. General Examination: Ms. Manrique is a 63-year-old, female. She is in bed. No distress. HEENT: Mucosa is pink and moist. Anicteric. Acyanotic. Neck: Supple. Chest: Good air entry bilaterally. There were no crepitations, no rhonchi. Cardiovascular: Regular rate and rhythm. GI: Abdomen is soft. It is distended. There is a hernia defect on the right upper quadrant where there is a surgical scar. Bowel sounds are present, slightly hypoactive. Extremities: Trace pedal edema. I did not get to examine the wounds on her sacral region. Laboratory Data: There are no labs for this morning. His glucose is 203. Urinalysis showed large blood. ASSESSMENT: 1. Recurrent nausea and vomiting. Esophagogastroduodenoscopy this morning was completely unremarkable. It is very possible that this is all related to medications including narcotics. We will review the medication list and discontinue what could be a potential course. 2. Enterobacter aerogenes infected decubitus ulcer. The patient had an incision and drainage done by Dr. Jeter. She continues to have wound care and she is on antibiotics. 3. Extended-spectrum B-lactamase Escherichia coli urinary tract infection. Patient is on meropenem. Infectious disease is on board. 4. History of pancreatic insufficiency. Patient is on Creon. 5. Hypothyroidism. We will continue with levothyroxine. 6. Protein calorie malnutrition. We will continue with supplements. 7. Fecal impaction on initial CT scan. Patient seems to be having bowel movements. 8. History of deep venous thromboses with pulmonary embolism. We will continue with anticoagulation. PLAN: In general, I think Ms. Manrique seems to be fairly stable. This morning, she did still say she was kind of nauseated. We will do a KUB tomorrow to rule out ongoing constipation. We will also encourage the patient to participate with physical therapy. We will review her medication list and discontinue what can be a potential source of the GI symptoms. Ms. Manrique is being evaluated for rehab placement, will be pending on final arrangement by psychiatric social worker supervisor. cc: Jesse Siblye MD
--- NOTE | 2018-10-16 15:21 | DISCHARGE SUMMARY ---
ADMISSION DATE: 10/04/2018 DISCHARGE DATE: 10/16/2018 DISPOSITION: [facility]. FOLLOW UP: 1. Dr. Ortiz. 2. Dr. Jeter. 3. Dr. Zambrano. 4. Dr. Alvarenga. CONSULTATION DURING THIS ADMISSION: 1. GI was consulted. Patient was seen by Dr. Zambrano. 2. GI was consulted. Patient was seen by Dr. Alvarenga. 3. Surgery was consulted patient was seen by Dr. Jeter. INVASIVE PROCEDURES DONE DURING THIS ADMISSION: 1. Debridement of skin and subcutaneous tissue less than 20 square cm was done by Dr. Jeter on 10/08/2018. 2. EGD was done by Dr. Alvarenga on 10/16/2018. ADMISSION DIAGNOSES: 1. Sepsis. 2. Gastrointestinal bleed. 3. Diffuse colitis. 4. Hyperkalemia. 5. Acute kidney injury. 6. Bilateral deep venous thrombosis and pulmonary embolus. 7. Chronic obstructive pulmonary disease . DIAGNOSES AT THE TIME OF DISCHARGE: 1. Sepsis on presentation secondary to severe diffuse colitis. 2. Enterobacter aerogenes infected decubitus ulcer, status post 3. Extended-spectrum beta-lactamase Escherichia coli urinary tract infection. 4. Pancreatic insufficiency. 5. Hypothyroidism. 6. History of deep venous thrombosis and pulmonary embolus. 7. Protein calorie malnutrition. 8. Recurrent nausea and vomiting. Esophagogastroduodenoscopy was completely unremarkable. We think this is medication induced. Narcotics have been discontinued. 9. Situational depression. 10. History of chronic obstructive pulmonary disease, currently stable. DISCHARGE MEDICATIONS: 1. Gabapentin 600, 3 times per day. 2. Bentyl 20 mg p.o. q.6 h. 3. Hydroxyzine. 4. Pravastatin 40 mg p.o. at bedtime. 5. Tizanidine 4 mg b.i.d. 6. BuSpar 10 mg 3 times per day. 7. Vitamin D. 8. Midodrine 10 mg 3 times per day. 9. Vilazodone 40 mg p.o. with breakfast. 10. Eliquis 5 mg b.i.d. 11. Multivitamin 1 tablet daily. 12. Levothyroxine 125 p.o. daily. 13. Lactobacillus 1 tablet daily. 14. Creon 12,000 units 3 times per day. 15. MiraLAX 17 g p.o. daily. 16. Pantoprazole 40 mg daily. 17. Carafate 1 g p.o. q.6 h. PRESENTING COMPLAINT: Altered mental status, nauseation, vomiting, and rectal bleed. HISTORY OF PRESENTING COMPLAINT: Ms Manrique is a 63-year-old female who was brought in because of altered mental status, generalized weakness, and GI related symptoms. The patient was evaluated in the ER, was found to be extremely dehydrated. The patient was fluid resuscitated. 2 L given to her in the ER. Empiric antibiotic was started. A CT scan did show diffuse colitis. Ms. Manrique was admitted for further medical care. HOSPITAL COURSE: Ms. Manrique was admitted to the medical floor. Was started on broad spectrum IV antibiotics. Cultures were done which eventually came back. Blood cultures were negative, but urine culture did show E. coli which was ESBL positive. The wound drainage also came back positive for Enterobacter aerogenes. Infectious Disease was consulted and patient was seen by Dr. Zambrano who dictated her antimicrobial therapy. Surgery was also consulted. Patient was seen by Dr. Jeter. I and D was done to the sacral ulcer. Subsequently, Wound Care was consulted and patient did receive wound care and wound therapy throughout the hospital course. Ms. Manrique also continues to have some nauseation and vomiting. EGD was done by Dr. Alvarenga which was unremarkable. We theorized that this was related to medications, so narcotics and other potential medications that could cause these symptoms were discontinued. This afternoon Ms. Manrique has eaten all her lunch. She has been consuming anywhere between 75 to 100 percent of her meals almost on a daily basis. We think she is fairly stable for discharge. She is going to be following up with GI as well as Surgery and with her primary care doctor on outpatient basis. All the discharge instructions have been discussed with her. She voices understanding. Please refer to my progress notes today for updated notes today. TIME SPENT FOR DISCHARGE: 37 minutes. cc: MD Dr. Angel Aguilar MD Dr. Harris Jason R. Seale, MD
[2018-10-16 16:07] VITALS: BP 128/66
== END 2018-10-16 18:00 | DRG 853 ==
LOC: SUPCPDRO → ED 11:33 → ICU 17:05 → SUATTDRO 17:05 → ICU 17:34 → 4N 10-05 16:13
PROVIDERS: ATTEND Internal Medicine
CPT/HCPCS: 51702; 70450; 71010; 71020; 71045; 71046; 71250; 74176; 78582; 80048; 80053; 80069; 80074; 80076; 81001; 82270; 82550; 82570; 82948; 83036; 83605; 83690; 83735; 83880; 83935; 84100; 84156; 84300; 84443; 84484; 85025; 85610; 85651; 85730; 86140; 87040; 87045; 87046; 87070; 87077; 87088; 87186; 87205; 87324; 87449; 88304; 93005; 93010; 94640; 94760; 94761; 94799; 96365; 96366; 96367; 96368; 96375; 97162; 99285; 99291; A9270; A9539; A9540; C9113; J0692; J0696; J1170; J1335; J1644; J1956; J2020; J2185; J2250; J2270; J2370; J2405; J2543; J2550; J3010; J3475; J7030; J7040; J7050; J7120; S0030; S0164; XXXXX